=== PATIENT | male | born 1950 | race Caucasian/White ===

== ENCOUNTER 2022-02-04 08:00 | Outpatient (RCR) | payer MEDICARE, BC, SELFPAY | END 2022-03-10 14:57 | disposition home or self-care (01) | PROVIDERS: Visit Provider Student in an Organized Health Care Education/Training Program | DX: M25.552 Pain in left hip (principal); Z51.89 Encounter for other specified aftercare | CPT/HCPCS: 97110; 97140; 97535 ==

== ENCOUNTER 2022-04-06 10:28 | Day surgery (SDC) | payer MEDICARE, BC, SELFPAY ==
[2022-04-06] VITALS (23 sets, daily range): BP systolic 81–161; BP diastolic 52–97; PULSE 63–90; RESP 14–94; TEMP 35.8–36.6; O2SAT 90–98; BMI 31.1
--- NOTE | 2022-04-06 11:13 | CRLHL7_ITS ---
For Patients: As a result of the Cures Act, medical imaging exams and procedure reports are released immediately into your electronic medical record. You may view this report before your referring provider. If you have questions, please contact your health care provider. Indication: Hip replacement surgery Technique: AP hip fluoroscopic image. Fluoroscopy time 43.7 seconds. Findings/Impression: Hardware from a left total hip arthroplasty is in satisfactory position. Dictated by David Vaz MD @ 04/07/2022 9:15:49 AM (Electronically Signed)
[2022-04-06] MEDS: OXYCODONE (CR) 10 MG TAB.ER.12H PO (11:15)
[2022-04-06] MEDS: SODIUM CHLORIDE 0.9 % (FLUSH) 10 ML SYRINGE IVF (11:25)
[2022-04-06] MEDS: LACTATED RINGERS 1000 ML 1,000 ML 100 ML IV (11:25)
[2022-04-06] MEDS: fentaNYL 100 MCG/2 ML inj IVP (11:40)
[2022-04-06] MEDS: MIDAZOLAM HCL 1 MG/ML inj IVP (11:40)
--- NOTE | 2022-04-06 11:49 | SUR.PREOP ---
TIME?OUT:?1135 PT/RN/MDA?VERIFICATION?OF?SURGICAL?SITE,?PROCEDURE,?AND?CONSENT OBTAINED?PRIOR?TO?INVASIVE?PROCEDURE.
--- NOTE | 2022-04-06 11:51 | SUR.PREOP ---
LAB HERE AT 1150 TO DRAW TYPE & SCREEN
--- NOTE | 2022-04-06 11:53 | SUR.PREOP ---
PATIENT TOOK OWN TYLENOL AND CELEBREX AT HOME THIS AM, HELD ORDERED TYLENOL AND CELEBREX.
--- NOTE | 2022-04-06 11:55 | W.PM.NB ---
Nerve Block Nerve Block Date Seen: 04/06/22 Type of block requested by surgeon for post-operative analgesia: ALLA/LFCN Time out performed: Yes Verification of patient name: Yes Verification of date of : Yes Site marking: site marked Name of person performing procedure: Naveen Continuous monitoring Was continuous monitoring of O2 sat, B/P, monitor car operator, recorded every 15 minutes?: Yes Procedure Checklist: sterile prep, needles and gloves Ultrasound guided. Images saved: Yes Medications given in 5ml increments after negative aspiration: Ropivicaine %: 0.5 mL: 30 Needle gauge: 20 Decadron (mg): 10 Precedex (mcg): 25 Patient tolerated procedure well: Yes Additional comments: Needle noted below psoas tendon needle noted adjacent to LFCN Block Charges Block Charge (with Pro Fee): Other Periph Nerve Block Use of Ultrasound Machine for Block: Yes- US Guidance/pain block
--- NOTE | 2022-04-06 12:09 | CRLHL7_ITS ---
For Patients: As a result of the Cures Act, medical imaging exams and procedure reports are released immediately into your electronic medical record. You may view this report before your referring provider. If you have questions, please contact your health care provider. Indication: Post op DAVID Technique: AP pelvis and lateral view left hip Findings/Impression: Hardware from a left total hip arthroplasty is in satisfactory position. Bone alignment is normal. No sign of acute fracture. Postop changes are within normal limits. Dictated by David Vaz MD @ 04/07/2022 9:17:30 AM (Electronically Signed)
--- NOTE | 2022-04-06 13:56 | P.ORPRC_ITS ---
Procedure Note Date of procedure: 04/06/22 Procedure: PREOPERATIVE DIAGNOSIS: 1. Left hip osteoarthritis, severe, primary POSTOPERATIVE DIAGNOSIS: 1. Left hip osteoarthritis, severe, primary PROCEDURE: 1. Left total hip arthroplasty-anterior approach 2. 56751 - intraoperative fluoroscopy up to 1 hour. SURGEON: Montana Head MD. BANKING SERVICES CLERK: Faustino Castaneda PA-C; YESENIA Poe - Of note, a skilled assistant restaurant general manager was critical for this case to aid in patient positioning, tissue retraction, limb manipulation/positioning, dislocation/relocation, patient safety, and closure. ANESTHESIA: Spinal anesthetic EBL: 1000 mL IMPLANTS: DePuy J&J uncemented total hip [place] cup size 50, hole eliminator, +4 neutral liner Actis stem, high offset, size 7 +1 mm ceramic 32mm head. COMPLICATIONS: None evident INDICATIONS: The patient is a pleasant 71-year-old male who has experienced severe left hip pain and difficulty bearing weight. Workup included x-rays which revealed severe osteoarthrosis in the hip. Given the deformity, the dysfunction, and the pain, as well as the failure of nonoperative management, recommendation was made for surgery. FINDINGS: Full-thickness chondral loss broadly to the femoral head especially around the rim of the femoral head. Full-thickness chondral loss acetabulum again perimeter primarily. Significant oozing from the acetabular vault upon reaming and until Surgicel applied after cup and poly insertion. DESCRIPTION OF PROCEDURE: Following a thorough discussion of risks, benefits, and alternatives consent was obtained and the left hip was marked. The patient was brought to the operating room and placed supine on the operating table. Induction of anesthesia was undertaken. 2 g IV Ancef and 1 g tranexamic acid was administered within 1 hr of incision preoperatively. Proper time-out was performed identifying proper patient, site, procedure. The operative extremity was prepped and draped in the appropriate sterile fashion using ChloraPrep after the patient was positioned on the [place] table with head in neutral alignment and all bony prominences well padded. C-arm fluoroscopic imaging was utilized to confirm proper pelvis rotation and position, and to get true AP films of both the contralateral left, and the affected left hip. This is for comparison. A longitudinal incision was made starting approximately 1 cm distal to the ASIS, and 3-4 cm lateral. The incision was extended distally aiming toward the lateral border the patella. Sharp incision through skin and bovie cautery through the subcutaneous tissue allowed identification of the TFL fascia. This was sharply divided, and the fascia bluntly released from the muscle fibers as we dissected medial. Upon coming to the medial border, we were able to retract the TFL laterally, and penetrated the deeper fascia and identify the crossing ci rcumflex vessels. These were ligated/cauterized. The rectus was elevated from the capsule, and retractors placed laterally and medially along the femoral neck to help with visualization of the capsule. We then performed an inverted T capsulotomy. The capsule was tagged for later repair. Retractors were placed inside the capsule. The femoral neck was visualized after releasing medially down to the lesser trochanter, along the saddle laterally, and up onto the acetabulum. The femoral neck cut was made in line with our preoperative templating. The head was removed in a single piece, and sized. We turned our attention to acetabular preparation. Initially, the labrum was resected from around the perimeter, the pulvinar was excised, allowing us to visualize the false wall. We started the reaming with a 43 mm reamer. This was medialized down to the true wall. We then enlarged our reamers sequentially up to one size less than the selected cup size. We trialed at the same size and f ound it to have an excellent fit. The selected cup was then opened, inserted, and impacted in line with the goal of 40-45? of abduction, and 20-25? of anteversion. This was confirmed on C-arm fluoroscopic imaging to be in the appropriate/goal position. Once the cup was placed we placed a hole eliminator and a liner consistent with preop planning. Attention was turned to the femoral preparation. The limb was extended, externally rotated, and adducted. The posteromedial capsule was released, as retractors were placed allowing excellent access to the proximal femur. Initially a box sealing machine feeder was followed by canal finder followed by various broaches. We broached sequentially up to size noted above, found it to have excellent rotational control, and trialing various heads and necks, revealed that appropriate neck offset, and the above noted head size provided the greatest stability, and restorationism of length, and offset. C-arm fluoroscopic imaging confirmed position of the stem, as well as leg lengths, which were compared with the pre procedure all fluoroscopic images. Trial implants were removed, the real femoral stem inserted, as was the ceramic head. After reducing, the leg was placed through range of motion and stability was confirmed anterior, posterior, and lateral. A 3 min Betadine soak was then performed, and thorough irrigation with normal saline followed. Closure of the capsule was performed with #1 PDS. Bleeding was confirmed to be controlled at this stage, and the TFL fascia was closed with #0 strata fix. Subcutaneous, and subcuticular closure was performed with 2-0 Vicryl and 4-0 Monocryl, respectively. Dressings were applied, and the patient was awoken from anesthesia and transferred the PACU in stable condition. A skilled assistant restaurant general manager was critical for this case to aid in patient positioning, tissue retraction, proximal femur exposure, limb manipulation/positioning, dislocation/relocation, patient safety, and closure. PLAN: 1. Weight bear as tolerated operative extremity. 2. 23 hr perioperative antibiotics. 3. Ice. 4. PT/OT consults for ambulation assistance/mobility education. 5. Social work consult for discharge planning. 6. DVT prophylaxis with at SCDs, Jarad Gutierrez, and Luisreldhiraj x5 days followed by aspirin for a total of 1 month..
--- NOTE | 2022-04-06 14:48 | W.ANESCHARGE ---
Anesthesia Charges Start Date/Time Anesthesia Start Date: 04/06/22 Anesthesia Start Time: 12:00 Stop Date/Time Anesthesia Stop Date: 04/06/22 Anesthesia Stop Time: 14:45 Summary Emergency: No Extremes of Age: Over 68-CPT 60328
--- NOTE | 2022-04-06 14:53 | W.ANESCHARGE ---
Anesthesia Charges Start Date/Time Anesthesia Start Date: 04/06/22 Anesthesia Start Time: 12:00 Stop Date/Time Anesthesia Stop Date: 04/06/22 Anesthesia Stop Time: 14:45 Summary Emergency: No
--- NOTE | 2022-04-06 15:59 | P.IMCN_ITS ---
Date of Consult Patient: Momo Patient Consult date: 04/06/22 Requesting Physician: Orthopedics Primary Care Provider: FRED THOMPSON DO Consult Narrative Reason for consult: Medical management of comorbidities Narrative: Abmrosio Abel is a 71 year old male who presented to the hospital today for an elective left DAVID. There were no surgical or anesthetic complications noted during procedure, although EBL was on the higher side of 1000 mL. Patient was hypotensive immediately postoperatively, blood pressure has come up nicely upon arrival to the floor. Patient's H&P reviewed, PCP is Dr. Thompson. Past medical history significant for: NICK (on CPAP, brought this to the hospital), Essential HTN, OA. No history of blood clots, has never needed a blood transfusion. Postoperative plan: Home with . 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 Nonsmoker, no concerning ETOH use. Review of Systems Status of ROS: Reports: 10 or more systems reviewed and unremarkable except as noted in History and below [facility] Medical History (Updated 04/03/22 @ 10:40 by Amanda Cage RN) Asthma Fracture of femoral neck, right GERD (gastroesophageal reflux disease) Hypertension Migraine Osteoarthritis of left hip Sleep apnea Surgical History (Updated 04/06/22 @ 16:02 by Carey Cardona MD) History of arthroscopy of right knee (~1994) History of foot surgery (08/05/20) History of surgery on lower extremity (07/13/18) Status post left hip replacement Family History (Updated 03/31/22 @ 09:34 by Abbey White RN) Maternal Grandmother Diabetes Brother Skin cancer Social History Highest level of school completed/degree received: Doctoral degree Smoking Status: Never smoker Do you use any of these nicotine containing products: None How often do you have a drink containing alcohol: never AUDIT-C Alcohol total score: 0 Non-prescribed substance use: denies use Caffeine: Yes (coffee, 3 mugs/day) Meds Home Medications and Allergies Home Medications Medication Instructions Recorded Confirmed Type tramadol 50 mg tablet 50 mg PO QID PRN 02/10/22 04/06/22 History albuterol sulfate 90 mcg/actuation 2 inh inhalation Q4H PRN 04/03/22 04/06/22 History aerosol inhaler (Ventolin HFA) celecoxib 200 mg capsule (Celebrex) 200 mg PO BID 04/03/22 04/06/22 History fluticasone propionate 50 1 spray intranasal DAILY PRN 04/03/22 04/06/22 History mcg/actuation nasal spray,suspension (24 Hour Allergy Relief) lisinopril 20 mg tablet 20 mg PO DAILY 04/03/22 04/06/22 History mometasone 0.1 % topical ointment 1 applic topical DAILY 04/03/22 04/06/22 History sildenafil 100 mg tablet (Viagra) 100 mg PO DAILY PRN 04/03/22 04/06/22 History acetaminophen 500 mg tablet 1,000 mg PO Q6H PRN 04/06/22 04/06/22 History (Acetaminophen Extra Strength) Allergies Allergy/AdvReac Type Severity Reaction Status Date / Time No Known Drug Allergies Allergy Verified 04/06/22 10:42 Exam Narrative: Exam Narrative: GEN: Alert and oriented, answering questions appropriately HEENT: Normal external ears, EOMIs bilaterally, no scleral icterus CV: RRR, No concerning murmurs, rubs, or gallops R: LCTA bilaterally without concerning wheezing, rales, or rhonchi Ext: wwp, no concerning edema Skin: No concerning skin lesions or rashes on exposed skin Neuro: Nonfocal Psych: Appropriate Const: Vital Signs, click to edit/add: Vital Signs - 24 hr 04/06/22 11:11 04/06/22 11:35 04/06/22 11:40 Temperature 97.9 F Pulse Rate 75 70 71 Pulse Rate [Left P ulse Oximeter] Respiratory Rate 16 16 16 Blood Pressure 161/97 H 159/90 H 138/86 Blood Pressure [Le ft Arm] Pulse Oximetry 96 97 98 Oxygen Delivery Me thod Room Air Nasal Cannula Nasal Cannula Oxygen Flow Rate 2 2 04/06/22 11:45 04/06/22 14:41 04/06/22 14:46 Temperature 97.5 F L Pulse Rate 70 86 82 Pulse Rate [Left P ulse Oximeter] Respiratory Rate 16 16 16 Blood Pressure 133/76 82/53 L 81/53 L Blood Pressure [Le ft Arm] Pulse Oximetry 98 96 96 Oxygen Delivery Me thod Nasal Cannula Room Air Room Air Oxygen Flow Rate 2 04/06/22 14:55 04/06/22 14:50 04/06/22 15:00 Temperature Pulse Rate 78 76 68 Pulse Rate [Left P ulse Oximeter] Respiratory Rate 16 16 14 Blood Pressure 90/55 L 88/52 L 92/55 L Blood Pressure [Le ft Arm] Pulse Oximetry 98 98 98 Oxygen Delivery Me thod Room Air Room Air Room Air Oxygen Flow Rate 04/06/22 15:05 04/06/22 15:10 04/06/22 15:41 Temperature 97.2 F L Pulse Rate 66 72 67 Pulse Rate [Left P ulse Oximeter] Respiratory Rate 16 16 94 H Blood Pressure 92/58 L 89/56 L Blood Pressure [Le ft Arm] 104/63 Pulse Oximetry 96 96 Oxygen Delivery Me thod Room Air Room Air Room Air Oxygen Flow Rate 04/06/22 15:30 04/06/22 15:45 Temperature 96.5 F L 96.9 F L Pulse Rate Pulse Rate [Left P ulse Oximeter] 82 82 Respiratory Rate 14 14 Blood Pressure Blood Pressure [Le ft Arm] 117/53 L 110/67 Pulse Oximetry 90 98 Oxygen Delivery Me thod Room Air Room Air Oxygen Flow Rate 2 Assessment and Plan Assessment and plan (1) Status post left hip replacement: Status: Acute Assessment and Plan: - pain management and prophylaxis per orthopedic surgery team - postoperative hemoglobin is 12.5, will follow - Continue CPAP at night for treatment of NICK - will hold lisinopril given postoperative hypotension - anticipate routine postoperative course
[2022-04-06 16:50] LABS: Hematocrit 36.8 % (37.0-53.0); Hemoglobin* 12.5 gm/dL (13.5-17.5); Immature Granulocytes Abs Auto 0.07 K/uL (0.00-0.30); Lymphocytes Percent Auto 4.5 % (20-44); Mean Corpuscular HGB Conc 34 gm/dL (32-36); Mean Corpuscular Hemoglobin 33 pg (26-34); Mean Corpuscular Volume 96 fL (80-100); Monocytes Percent Auto 1.3 % (0.0-11.0); Neutrophils Percent Auto 93.6 % (42.0-72.0); Platelet Count* 186 K/uL (140-440); RDW Coefficient of Variation % 12.7 % (11.5-15.5); Red Blood Count 3.84 m/uL (4.30-5.90); White Blood Count* 12.07 K/uL (4.50-11.00)
[2022-04-06 17:01] LABS: Slide Review Reflex No
[2022-04-06] MEDS: OXYCODONE 5 MG TABLET PO ×3 (17:25→21:52)
[2022-04-06] MEDS: ACETAMINOPHEN 500 MG TABLET 1000 MG PO (18:04)
--- NOTE | 2022-04-06 18:47 | PC.NURSE ---
End of Shift: Patient pleasant and cooperative. Patient vitally stable, lungs clear, BS WNL, IV running LR at 75ml. Patient has rated pain at most 6/10, scheduled tylenol given and 5mg of oxycodone. Patient tolerating regular diet. Patient up in chair, 1 assist, walker, gb. Patient left hip dressing C/D/I. Patient has not urinated with this telegraphic typewriter operator.
[2022-04-06] MEDS: CEFAZOLIN 2 GM in 0.9 % SODIUM CHLORIDE Mini-bag 100 ML IVPB (19:27)
[2022-04-06] MEDS: CELECOXIB 200 MG CAPSULE PO (21:43)
[2022-04-06] MEDS: SENNOSIDES 1 TAB TABLET 2 TAB PO (21:43)
[2022-04-06] MEDS: hydrOXYzine pamoate 25 MG CAPSULE PO (21:52)
[2022-04-06] MEDS: LACTATED RINGERS 1000 ML 1,000 ML 75 ML IV (21:53)
[2022-04-07] MEDS: ACETAMINOPHEN 500 MG TABLET 1000 MG PO ×2 (01:15→06:12)
[2022-04-07 03:00] VITALS: BP 114/68; PULSE 79; RESP 18; TEMP 36.6; O2SAT 94
[2022-04-07] MEDS: CEFAZOLIN 2 GM in 0.9 % SODIUM CHLORIDE Mini-bag 100 ML IVPB (03:14)
[2022-04-07 06:54] LABS: Basophils Percent Auto 0.1 % (0.0-3.0); Hematocrit 33.9 % (37.0-53.0); Hemoglobin* 11.5 gm/dL (13.5-17.5); Immature Granulocytes Abs Auto 0.02 K/uL (0.00-0.30); Lymphocytes Percent Auto 6.4 % (20-44); Mean Corpuscular HGB Conc 34 gm/dL (32-36); Mean Corpuscular Hemoglobin 33 pg (26-34); Mean Corpuscular Volume 96 fL (80-100); Monocytes Percent Auto 8.2 % (0.0-11.0); Neutrophils Percent Auto 85.1 % (42.0-72.0); Platelet Count* 204 K/uL (140-440); RDW Coefficient of Variation % 12.9 % (11.5-15.5); Red Blood Count 3.54 m/uL (4.30-5.90); White Blood Count* 12.52 K/uL (4.50-11.00)
[2022-04-07 06:56] LABS: Slide Review Reflex No
--- NOTE | 2022-04-07 06:56 | PC.NURSE ---
Shift note: Pt is doing well, pain level rated at 2. Dressing appears clean and dry. Pt has had about 350ml of clear urine this shift so saline locked. Resumed regular diet. Assist of 1 with walker and GB.
[2022-04-07 07:00] VITALS: BP 129/76; PULSE 78; RESP 16; TEMP 37.2; O2SAT 96
[2022-04-07 07:14] LABS: Sodium* 137 mmol/L (135-149)
[2022-04-07 07:15] LABS: Potassium* 4.9 mmol/L (3.6-5.1)
[2022-04-07 07:17] LABS: Creatinine* 0.8 mg/dL (0.5-1.5); Est. Creatinine Clearance* 63.65; Estimated Glomerular Filt Rate 93 ml/min
[2022-04-07 07:18] LABS: Blood Urea Nitrogen* 22 mg/dL (7-30)
--- NOTE | 2022-04-07 07:54 | P.ORPN_ITS ---
Subjective Subjective Date Seen: 04/07/22 Principal diagnosis: Status postop day 1 left total hip arthroplasty - anterior approach Interval history: Patient reports doing well. No acute events over night. Pain managed with scheduled /PRN medications and ice. DVT prophylaxis rivaroxaban, bilateral knee high Jarad stockings, and SCDs. Denies fevers, chills, aches, N/V, CP, SOB/DUMONT, tachycardia, tachypnea or lightheadedness. Reports having inconsistent urine vo id, with slight pressure in his bladder. Reports that he is typically very regular with bowel and bladder. Ortho Exam Narrative Exam Narrative: -Patient appears comfortable in bed; no apparent acute distress. CPAP in place -Alert and oriented times 3 -Operative hip mildly swollen; soft tissues supple; no obvious erythema. Warmth appropriate. There is some erythema over the ice pack contact region -Surgical dressing clean, dry, intact; no obvious drainage, no erythematous streaking peripheral to the bandage -Bilateral calves soft and supple; no significant swelling, edema, tenderness, erythema, discoloration, warmth, or palpable cords -2+ DP/PT pulses, intact dermatomes and myotomes distally (5/5 strength). No numbness about the lateral femoral cutaneous nerve distribution. -pressure, mildly tender over the bladder with palpation Const Vital Signs, click to edit/add: Vital Signs - 24 hr 04/06/22 11:11 04/06/22 11:35 04/06/22 11:40 Temperature 97.9 F Pulse Rate 75 70 71 Pulse Rate [Left Pulse Oximeter] Respiratory Rate 16 16 16 Blood Pressure 161/97 H 159/90 H 138/86 Blood Pressure [Left Arm] Blood Pressure [Right Arm] Pulse Oximetry 96 97 98 Oxygen Delivery Method Room Air Nasal Cannula Nasal Cannula Oxygen Flow Rate 2 2 04/06/22 11:45 04/06/22 14:41 04/06/22 14:46 Temperature 97.5 F L Pulse Rate 70 86 82 Pulse Rate [Left Pulse Oximeter] Respiratory Rate 16 16 16 Blood Pressure 133/76 82/53 L 81/53 L Blood Pressure [Left Arm] Blood Pressure [Right Arm] Pulse Oximetry 98 96 96 Oxygen Delivery Method Nasal Cannula Room Air Room Air Oxygen Flow Rate 2 04/06/22 14:55 04/06/22 14:50 04/06/22 15:00 Temperature Pulse Rate 78 76 68 Pulse Rate [Left Pulse Oximeter] Respiratory Rate 16 16 14 Blood Pressure 90/55 L 88/52 L 92/55 L Blood Pressure [Left Arm] Blood Pressure [Right Arm] Pulse Oximetry 98 98 98 Oxygen Delivery Method Room Air Room Air Room Air Oxygen Flow Rate 04/06/22 15:05 04/06/22 15:10 04/06/22 15:41 Temperature 97.2 F L Pulse Rate 66 72 67 Pulse Rate [Left Pulse Oximeter] Respiratory Rate 16 16 94 H Blood Pressure 92/58 L 89/56 L Blood Pressure [Left Arm] 104/63 Blood Pressure [Right Arm] Pulse Oximetry 96 96 Oxygen Delivery Method Room Air Room Air Room Air Oxygen Flow Rate 04/06/22 15:30 04/06/22 15:45 04/06/22 16:00 Temperature 96.5 F L 96.9 F L 97.3 F L Pulse Rate Pulse Rate [Left Pulse Oximeter] 82 82 64 Respiratory Rate 14 14 14 Blood Pressure Blood Pressure [Left Arm] 117/53 L 110/67 105/76 Blood Pressure [Right Arm] Pulse Oximetry 90 98 98 Oxygen Delivery Method Room Air Room Air Room Air Oxygen Flow Rate 2 04/06/22 16:15 04/06/22 16:45 04/06/22 17:15 Temperature 97.1 F L 97.1 F L 97.1 F L Pulse Rate Pulse Rate [Left Pulse Oximeter] 63 63 64 Respiratory Rate 14 14 14 Blood Pressure Blood Pressure [Left Arm] 109/81 121/74 120/73 Blood Pressure [Right Arm] Pulse Oximetry 96 97 98 Oxygen Delivery Method Room Air Room Air Room Air Oxygen Flow Rate 04/06/22 18:15 04/06/22 19:15 04/06/22 20:15 Temperature 97.3 F L 97.7 F 97.7 F Pulse Rate Pulse Rate [Left Pulse Oximeter] 82 90 88 Respiratory Rate 14 18 16 Blood Pressure Blood Pressure [Left Arm] Blood Pressure [Right Arm] 119/81 119/83 120/66 Pulse Oximetry 98 98 97 Oxygen Delivery Method Room Air Room Air Room Air Oxygen Flow Rate 04/06/22 21:15 04/06/22 23:00 04/06/22 23:00 Temperature 97.7 F 97.7 F Pulse Rate Pulse Rate [Left Pulse Oximeter] 81 85 Respiratory Rate 16 18 18 Blood Pressure Blood Pressure [Left Arm] 110/68 Blood Pressure [Right Arm] 116/67 Pulse Oximetry 98 94 Oxygen Delivery Method Room Air Room Air Oxygen Flow Rate 2 04/07/22 03:00 Temperature 97.9 F Pulse Rate Pulse Rate [Left Pulse Oximeter] 79 Respiratory Rate 18 Blood Pressure Blood Pressure [Left Arm] 114/68 Blood Pressure [Right Arm] Pulse Oximetry 94 Oxygen Delivery Method Room Air Oxygen Flow Rate 2 Assessment and Plan Assessment and plan (1) Status post left hip replacement: Problem details: POD 1 left total hip arthroplasty - anterior approach Status: Acute (2) Acute postoperative anemia due to greater than expected blood loss: Problem details: Hemoglobin 11.5, down from 12.5 04/06/22; greater than 14 preoperative. He is asymptomatic (pt denies CP, SOB/DUMONT, tachycardia, tachypnea, lightheadedness or dizziness). Status: Acute Plan - Complete 23 hour perioperative antibiotics. - PT/OT consult for education and assistance. - Social work consult for discharge planning - Prescribed analgesics as needed - DVT prophylaxis: Rivaroxaban 5 total days 25 days 81 mg aspirin by mouth twice daily; bilateral knee high Jarad Hose stockings and SCDs - Anticipation is for discharge to home 04/07/2022 if the patient remains medically stable, pain is controlled, and they are safe with mobilization.
--- NOTE | 2022-04-07 08:00 | PM.DS1 ---
DS: Providers Provider Date Seen: 04/07/22 Date of admission: med/surg recovery 04/06/22 Primary care physician: FRED FAY DO Consults: 04/06/22 15:33 Consult to Occupational Therapy [CONS] Routine Comment: Reason(s) for OT Consult:: ADLs Prior to Discharge Any Restrictions?:: No Restrictions Comment: Consult to Physical Therapy [CONS] Routine Comment: Ambulate in the ansari today Reason(s) for PT Consult:: Evaluate and Treat Any Restrictions?:: No Restrictions Comment: Nursing Activity Consult to Physician [CONS] Routine Comment: Consulting Provider: Hospitalists Has provider been notified: No Consult to Special Projects Coordinator [CONS] Routine Comment: Reason for Consult:: Discharge Planning Needs Attending Physician on discharge: Montana Head MD Date of Discharge: 04/07/22 DS: Diagnosis Discharge Diagnosis (1) Osteoarthritis of left hip: Status: Acute Problem details: Severe (2) Status post left hip replacement: Status: Acute Problem details: POD 1 left total hip arthroplasty - anterior approach DS: Summary Status at Discharge Cognitive/behavioral status at discharge: The patient has a history of left hip osteoarthritis, primary, severe. After appropriate preoperative evaluation, the patient underwent left total hip arthroplasty. Postoperatively given anticoagulation for deep vein thrombosis prophylaxis. They progressed to PT/OT and were felt ready and prepared for discharge to home with appropriate pain medication and anticoagulation medications. He had greater than expected blood loss during surgery, that was treated appropriately. During wound closure, the field was dry; there were no concerns for active bleeding. Postoperative, while patient's hemoglobin reflected blood loss anemia, he was asymptomatic. Functional status at discharge: uses cane/walker Overall status at discharge: patient is progressing back to baseline Time Spent with Patient Time attestation: Total time spent providing and/or coordinating discharge services: Time spent: Less than 30 minutes Exam Const: Vital Signs, click to edit/add: Vital Signs - 24 hr 04/06/22 11:11 04/06/22 11:35 04/06/22 11:40 Temperature 97.9 F Pulse Rate 75 70 71 Pulse Rate [Left P ulse Oximeter] Respiratory Rate 16 16 16 Blood Pressure 161/97 H 159/90 H 138/86 Blood Pressure [Le ft Arm] Blood Pressure [Ri ght Arm] Pulse Oximetry 96 97 98 Oxygen Delivery Me thod Room Air Nasal Cannula Nasal Cannula Oxygen Flow Rate 2 2 10/31/22 11:45 04/06/22 14:41 04/06/22 14:46 Temperature 97.5 F L Pulse Rate 70 86 82 Pulse Rate [Left P ulse Oximeter] Respiratory Rate 16 16 16 Blood Pressure 133/76 82/53 L 81/53 L Blood Pressure [Le ft Arm] Blood Pressure [Ri ght Arm] Pulse Oximetry 98 96 96 Oxygen Delivery Me thod Nasal Cannula Room Air Room Air Oxygen Flow Rate 2 04/06/22 14:55 04/06/22 14:50 04/06/22 15:00 Temperature Pulse Rate 78 76 68 Pulse Rate [Left P ulse Oximeter] Respiratory Rate 16 16 14 Blood Pressure 90/55 L 88/52 L 92/55 L Blood Pressure [Le ft Arm] Blood Pressure [Ri ght Arm] Pulse Oximetry 98 98 98 Oxygen Delivery Me thod Room Air Room Air Room Air Oxygen Flow Rate 04/06/22 15:05 04/06/22 15:10 04/06/22 15:41 Temperature 97.2 F L Pulse Rate 66 72 67 Pulse Rate [Left P ulse Oximeter] Respiratory Rate 16 16 94 H Blood Pressure 92/58 L 89/56 L Blood Pressure [Le ft Arm] 104/63 Blood Pressure [Ri ght Arm] Pulse Oximetry 96 96 Oxygen Delivery Me thod Room Air Room Air Room Air Oxygen Flow Rate 04/06/22 15:30 04/06/22 15:45 04/06/22 16:00 Temperature 96.5 F L 96.9 F L 97.3 F L Pulse Rate Pulse Rate [Left P ulse Oximeter] 82 82 64 Respiratory Rate 14 14 14 Blood Pressure Blood Pressure [Le ft Arm] 117/53 L 110/67 105/76 Blood Pressure [Ri ght Arm] Pulse Oximetry 90 98 98 Oxygen Delivery Me thod Room Air Room Air Room Air Oxygen Flow Rate 2 04/06/22 16:15 04/06/22 16:45 04/06/22 17:15 Temperature 97.1 F L 97.1 F L 97.1 F L Pulse Rate Pulse Rate [Left P ulse Oximeter] 63 63 64 Respiratory Rate 14 14 14 Blood Pressure Blood Pressure [Le ft Arm] 109/81 121/74 120/73 Blood Pressure [Ri ght Arm] Pulse Oximetry 96 97 98 Oxygen Delivery Me thod Room Air Room Air Room Air Oxygen Flow Rate 04/06/22 18:15 04/06/22 19:15 04/06/22 20:15 Temperature 97.3 F L 97.7 F 97.7 F Pulse Rate Pulse Rate [Left P ulse Oximeter] 82 90 88 Respiratory Rate 14 18 16 Blood Pressure Blood Pressure [Le ft Arm] Blood Pressure [Ri ght Arm] 119/81 119/83 120/66 Pulse Oximetry 98 98 97 Oxygen Delivery Me thod Room Air Room Air Room Air Oxygen Flow Rate 04/06/22 21:15 04/06/22 23:00 04/06/22 23:00 Temperature 97.7 F 97.7 F Pulse Rate Pulse Rate [Left P ulse Oximeter] 81 85 Respiratory Rate 16 18 18 Blood Pressure Blood Pressure [Le ft Arm] 110/68 Blood Pressure [Ri ght Arm] 116/67 Pulse Oximetry 98 94 Oxygen Delivery Me thod Room Air Room Air Oxygen Flow Rate 2 04/07/22 03:00 Temperature 97.9 F Pulse Rate Pulse Rate [Left P ulse Oximeter] 79 Respiratory Rate 18 Blood Pressure Blood Pressure [Le ft Arm] 114/68 Blood Pressure [Ri ght Arm] Pulse Oximetry 94 Oxygen Delivery Me thod Room Air Oxygen Flow Rate 2 DS: Data Data Completed and Pending Labs on day of discharge: Labs from last 24 hours 04/07/22 04/07/22 04/06/22 06:34 06:34 16:36 WBC 12.52 H 12.07 H RBC 3.54 L 3.84 L Hgb 11.5 L 12.5 L Hct 33.9 L 36.8 L MCV 96 96 MCH 33 33 MCHC 34 34 RDW Coeff of Fletcher 12.9 12.7 Plt Count 204 186 Neut % (Auto) 85.1 H 93.6 H Lymph % (Auto) 6.4 L 4.5 L [place] % (Auto) 8.2 1.3 Eos % (Auto) 0.0 0.0 Baso % (Auto) 0.1 0.0 Neut # (Auto) 10.70 H 11.30 H Lymph # (Auto) 0.80 L 0.50 L [place] # (Auto) 1.00 H 0.20 Eos # (Auto) 0.00 0.00 Baso # (Auto) 0.00 0.00 Abs Immat Gran (auto) 0.02 0.07 Sodium 137 Potassium 4.9 BUN 22 Creatinine 0.8 Estimated Creat Clear 63.65 Estimated GFR 93 Blood Type Antibody Screen 04/06/22 11:55 WBC RBC Hgb Hct MCV MCH MCHC RDW Coeff of Fletcher Plt Count Neut % (Auto) Lymph % (Auto) [place] % (Auto) Eos % (Auto) Baso % (Auto) Neut # (Auto) Lymph # (Auto) [place] # (Auto) Eos # (Auto) Baso # (Auto) Abs Immat Gran (auto) Sodium Potassium BUN Creatinine Estimated Creat Clear Estimated GFR Blood Type B Positive Antibody Screen NEGATIVE Discharge Plan Discharge Disposition: Home, Self-Care Discharging Surgeon: Montana Head Follow-Up Appointment: 1 week PO visit with [facility] Prescriptions: New sennosides-docusate sodium [Senna-S] 8.6-50 mg tablet 1 - 4 tab-cap PO BID PRN (Reason: constipation) Qty: 60 0RF Rx Instructions: Hold medication if experiencing loose stools. aspirin 81 mg tablet,delayed release (DR/EC) 81 mg PO BID Qty: 50 0RF Rx Instructions: Medication to help prevent blood clots postoperatively; take TWICE daily. acetaminophen 500 mg capsule 500 - 1,000 mg PO Q6H MDD 4000mg PRNQty: 100 0RF oxycodone 5 mg tablet 2.5 - 5 mg PO Q4-6H MDD 6 PRN (Reason: pain) Qty: 42 0RF Rx Instructions: Take as needed for postop pain: 2.5mg mild pain, 5mg moderate-severe pain; wean as tolerated. rivaroxaban 10 mg tablet 10 mg PO DAILY Qty: 4 0RF Rx Instructions: Medication for deep vein clot prevention post surgery. Complete this medication before starting Aspirin. Discontinued tramadol 50 mg tablet 50 mg PO QID PRN No Action albuterol sulfate [Ventolin HFA] 90 mcg/actuation HFA aerosol inhaler 2 inh inhalation Q4H PRN celecoxib [Celebrex] 200 mg capsule 200 mg PO BID fluticasone propionate [24 Hour Allergy Relief] 50 mcg/actuation spray,suspension 1 spray intranasal DAILY PRN Rx Instructions: administer into each nostril lisinopril 20 mg tablet 20 mg PO DAILY mometasone 0.1 % ointment 1 applic topical DAILY sildenafil [Viagra] 100 mg tablet 100 mg PO DAILY PRN Rx Instructions: administer 30 minutes to 4 hours before activity acetaminophen [Acetaminophen Extra Strength] 500 mg tablet 1,000 mg PO Q6H PRN Activity Level: Activity as Tolerated, Weight Bearing as Tolerated, Use Cane and Use Walker Discharge Diet: Regular Patient Instructions: Surgical Site Infections (DC) Additional Instructions: Wound: ?Do not remove original dressing; we will remove this at first postop visit in 1 week. Only remove dressing if integrity is in question. ?No immersing wound in water; showering okay; light scrub with your hand and body soap, rinse, dab dry ?Sutures are under the skin, will dissolve; allow surgical glue to come off naturally; do not scrub the wound or apply ointments/lotions ?Call our office with any redness that streaks, excessive drainage from the wound, or wound gapping. Ice/Elevate: ?Ice as needed for swelling and discomfort (cryocuff or ice pack); elevate frequently above the heart JOSEFINA socks: ?Wear for 1 month, remove for 1 hour 3 times per day ?These are frustrating to take on/off, but are important for blood clot prevention for 1 month after surgery Blood Clot Prevention (DVT): ?Medication: Rivaroxaban, and transition to 81 mg aspirin by mouth twice daily (total one month of protection). Driving: ?Do not drive while taking narcotic pain medication ?Anticipate 4-6 weeks no driving if operative leg is driving leg Dental: ?No elective dental work for 6 months post-op. If there is an urgent/emergent dental need, contact our office for an antibiotic prescription. Smoking/Alcohol: ?Do not smoke; do no drink alcohol especially when taking postoperative oral narcotic medication Seek Care from you Primary Care Provider if you experience the following issues in the postoperative phase and beyond: ?Bacterial infections such as: pneumonia, bacterial skin infection (cellulitis), UTI, high fever, chills unrelated to the operative body part - call your primary care physician urgently for treatment in hopes to protect your health and the metal implant. Referrals: ?PT, OT per patient preference - evaluate treat total hip arthroplasty protocol (gait training, ROM, ADLs) Follow up: ?Ortho surgeon follow-up in 6 weeks; repeat radiographs AP pelvis, cross-table lateral operative hip ?PA-C visit in 1 week *If there are any acute concerns regarding your surgery, please call our orthopedic clinic ([phone]) Forms: Work/Release Restrictions Follow-up: FRED FAY DO [Primary Care Provider] - Discharge Orders: Discharge Order (Routine); Ordered 04/07/22 Ordered By: Faustino Castaneda
[2022-04-07] MEDS: OXYCODONE 5 MG TABLET PO ×2 (08:01→10:41)
[2022-04-07] MEDS: CELECOXIB 200 MG CAPSULE PO (09:10)
[2022-04-07] MEDS: SENNOSIDES 1 TAB TABLET 2 TAB PO (09:11)
[2022-04-07] MEDS: RIVAROXABAN 10 MG TABLET PO (09:11)
--- NOTE | 2022-04-07 09:51 | P.DS_ITS ---
DS: Providers Provider Date Seen: 04/07/22 Primary care physician: FRED FAY DO Consults: PT, OT, SW, and hospitalist Attending Physician on discharge: [place] Head MD Date of Discharge: 04/07/22 DS: Diagnosis Discharge Diagnosis (1) Status post left hip replacement: Status: Acute Problem details: POD 1 left total hip arthroplasty - anterior approach DS: Summary Hospital Course Hospital Course: Jessicaes a 71-year-old male who presented to the hospital for elective left total hip with orthopedic surgery. He had a notable EBL of 1000 mL, hemoglobin was 12.5 postoperatively, 11.5 on postoperative day 1. Patient had no concerning symptoms of lightheadedness or dizziness, and there was no concern for persistent bleeding postoperatively. Comorbidities remained stable throughout stay. No changes made to home medications upon discharge. Prophylaxis and pain management per Orthopedic surgery team. Patient will be discharged home with routine follow-up with therapies, orthopedic surgery, and PCP. Time Spent with Patient Time attestation: Total time spent providing and/or coordinating discharge services: Exam Narrative: Exam Narrative: GEN: Alert and oriented, sitting comfortably in bedside chair and speaking in full sentences HEENT: Normal external ears, EOMIs bilaterally Ext: wwp, no concerning edema Skin: No concerning skin lesions or rashes on exposed skin Neuro: Nonfocal, no resting tremor, gait appropriate per postop status with therapy team Psych: Appropriate Const: Vital Signs, click to edit/add: Vital Signs - 24 hr 04/06/22 11:11 04/06/22 11:35 04/06/22 11:40 Temperature 97.9 F Pulse Rate 75 70 71 Pulse Rate [Left P ulse Oximeter] Respiratory Rate 16 16 16 Blood Pressure 161/97 H 159/90 H 138/86 Blood Pressure [Le ft Arm] Blood Pressure [Ri ght Arm] Pulse Oximetry 96 97 98 Oxygen Delivery Me thod Room Air Nasal Cannula Nasal Cannula Oxygen Flow Rate 2 2 04/06/22 11:45 04/06/22 14:41 04/06/22 14:46 Temperature 97.5 F L Pulse Rate 70 86 82 Pulse Rate [Left P ulse Oximeter] Respiratory Rate 16 16 16 Blood Pressure 133/76 82/53 L 81/53 L Blood Pressure [Le ft Arm] Blood Pressure [Ri ght Arm] Pulse Oximetry 98 96 96 Oxygen Delivery Me thod Nasal Cannula Room Air Room Air Oxygen Flow Rate 2 04/06/22 14:55 04/06/22 14:50 04/06/22 15:00 Temperature Pulse Rate 78 76 68 Pulse Rate [Left P ulse Oximeter] Respiratory Rate 16 16 14 Blood Pressure 90/55 L 88/52 L 92/55 L Blood Pressure [Le ft Arm] Blood Pressure [Ri ght Arm] Pulse Oximetry 98 98 98 Oxygen Delivery Me thod Room Air Room Air Room Air Oxygen Flow Rate 04/06/22 15:05 04/06/22 15:10 04/06/22 15:41 Temperature 97.2 F L Pulse Rate 66 72 67 Pulse Rate [Left P ulse Oximeter] Respiratory Rate 16 16 94 H Blood Pressure 92/58 L 89/56 L Blood Pressure [Le ft Arm] 104/63 Blood Pressure [Ri ght Arm] Pulse Oximetry 96 96 Oxygen Delivery Me thod Room Air Room Air Room Air Oxygen Flow Rate 04/06/22 15:30 04/06/22 15:45 04/06/22 16:00 Temperature 96.5 F L 96.9 F L 97.3 F L Pulse Rate Pulse Rate [Left P ulse Oximeter] 82 82 64 Respiratory Rate 14 14 14 Blood Pressure Blood Pressure [Le ft Arm] 117/53 L 110/67 105/76 Blood Pressure [Ri ght Arm] Pulse Oximetry 90 98 98 Oxygen Delivery Me thod Room Air Room Air Room Air Oxygen Flow Rate 2 04/06/22 16:15 04/06/22 16:45 04/06/22 17:15 Temperature 97.1 F L 97.1 F L 97.1 F L Pulse Rate Pulse Rate [Left P ulse Oximeter] 63 63 64 Respiratory Rate 14 14 14 Blood Pressure Blood Pressure [Le ft Arm] 109/81 121/74 120/73 Blood Pressure [Ri ght Arm] Pulse Oximetry 96 97 98 Oxygen Delivery Me thod Room Air Room Air Room Air Oxygen Flow Rate 04/06/22 18:15 04/06/22 19:15 04/06/22 20:15 Temperature 97.3 F L 97.7 F 97.7 F Pulse Rate Pulse Rate [Left P ulse Oximeter] 82 90 88 Respiratory Rate 14 18 16 Blood Pressure Blood Pressure [Le ft Arm] Blood Pressure [Ri ght Arm] 119/81 119/83 120/66 Pulse Oximetry 98 98 97 Oxygen Delivery Me thod Room Air Room Air Room Air Oxygen Flow Rate 04/06/22 21:15 04/06/22 23:00 04/06/22 23:00 Temperature 97.7 F 97.7 F Pulse Rate Pulse Rate [Left P ulse Oximeter] 81 85 Respiratory Rate 16 18 18 Blood Pressure Blood Pressure [Le ft Arm] 110/68 Blood Pressure [Ri ght Arm] 116/67 Pulse Oximetry 98 94 Oxygen Delivery Me thod Room Air Room Air Oxygen Flow Rate 2 04/07/22 03:00 04/07/22 07:00 04/07/22 07:00 Temperature 97.9 F 99 F Pulse Rate Pulse Rate [Left P ulse Oximeter] 79 78 78 Respiratory Rate 18 16 16 Blood Pressure Blood Pressure [Le ft Arm] 114/68 Blood Pressure [Ri ght Arm] 129/76 Pulse Oximetry 94 96 Oxygen Delivery Me thod Room Air Room Air Oxygen Flow Rate 2 DS: Data Data Completed and Pending Labs on day of discharge: Labs from last 24 hours 04/07/22 04/07/22 04/06/22 06:34 06:34 16:36 WBC 12.52 H 12.07 H RBC 3.54 L 3.84 L Hgb 11.5 L 12.5 L Hct 33.9 L 36.8 L MCV 96 96 MCH 33 33 MCHC 34 34 RDW Coeff of Fletcher 12.9 12.7 Plt Count 204 186 Neut % (Auto) 85.1 H 93.6 H Lymph % (Auto) 6.4 L 4.5 L Hanson % (Auto) 8.2 1.3 Eos % (Auto) 0.0 0.0 Baso % (Auto) 0.1 0.0 Neut # (Auto) 10.70 H 11.30 H Lymph # (Auto) 0.80 L 0.50 L Hanson # (Auto) 1.00 H 0.20 Eos # (Auto) 0.00 0.00 Baso # (Auto) 0.00 0.00 Abs Immat Gran (auto) 0.02 0.07 Sodium 137 Potassium 4.9 BUN 22 Creatinine 0.8 Estimated Creat Clear 63.65 Estimated GFR 93 Blood Type Antibody Screen 04/06/22 11:55 WBC RBC Hgb Hct MCV MCH MCHC RDW Coeff of Fletcher Plt Count Neut % (Auto) Lymph % (Auto) Hanson % (Auto) Eos % (Auto) Baso % (Auto) Neut # (Auto) Lymph # (Auto) Hanson # (Auto) Eos # (Auto) Baso # (Auto) Abs Immat Gran (auto) Sodium Potassium BUN Creatinine Estimated Creat Clear Estimated GFR Blood Type B Positive Antibody Screen NEGATIVE Discharge Plan Discharge Disposition: Home, Self-Care Discharging Surgeon: Montana Head Follow-Up Appointment: 1 week PO visit with PORTIA Prescriptions: New sennosides-docusate sodium [Senna-S] 8.6-50 mg tablet 1 - 4 tab-cap PO BID PRN (Reason: constipation) Qty: 60 0RF Rx Instructions: Hold medication if experiencing loose stools. aspirin 81 mg tablet,delayed release (DR/EC) 81 mg PO BID Qty: 50 0RF Rx Instructions: Medication to help prevent blood clots postoperatively; take TWICE daily. acetaminophen 500 mg capsule 500 - 1,000 mg PO Q6H MDD 4000mg PRNQty: 100 0RF oxycodone 5 mg tablet 2.5 - 5 mg PO Q4-6H MDD 6 PRN (Reason: pain) Qty: 42 0RF Rx Instructions: Take as needed for postop pain: 2.5mg mild pain, 5mg moderate-severe pain; wean as tolerated. rivaroxaban 10 mg tablet 10 mg PO DAILY Qty: 4 0RF Rx Instructions: Medication for deep vein clot prevention post surgery. Complete this medication before starting Aspirin. Discontinued tramadol 50 mg tablet 50 mg PO QID PRN No Action albuterol sulfate [Ventolin HFA] 90 mcg/actuation HFA aerosol inhaler 2 inh inhalation Q4H PRN celecoxib [Celebrex] 200 mg capsule 200 mg PO BID fluticasone propionate [24 Hour Allergy Relief] 50 mcg/actuation spray,suspension 1 spray intranasal DAILY PRN Rx Instructions: administer into each nostril lisinopril 20 mg tablet 20 mg PO DAILY mometasone 0.1 % ointment 1 applic topical DAILY sildenafil [Viagra] 100 mg tablet 100 mg PO DAILY PRN Rx Instructions: administer 30 minutes to 4 hours before activity acetaminophen [Acetaminophen Extra Strength] 500 mg tablet 1,000 mg PO Q6H PRN Activity Level: Activity as Tolerated, Weight Bearing as Tolerated, Use Cane and Use Walker Discharge Diet: Regular Patient Instructions: Surgical Site Infections (DC) Additional Instructions: Wound: ?Do not remove original dressing; we will remove this at first postop visit in 1 week. Only remove dressing if integrity is in question. ?No immersing wound in water; showering okay; light scrub with your hand and body soap, rinse, dab dry ?Sutures are under the skin, will dissolve; allow surgical glue to come off naturally; do not scrub the wound or apply ointments/lotions ?Call our office with any redness that streaks, excessive drainage from the wound, or wound gapping. Ice/Elevate: ?Ice as needed for swelling and discomfort (cryocuff or ice pack); elevate frequently above the heart JOSEFINA socks: ?Wear for 1 month, remove for 1 hour 3 times per day ?These are frustrating to take on/off, but are important for blood clot prevention for 1 month after surgery Blood Clot Prevention (DVT): ?Medication: Rivaroxaban, and transition to 81 mg aspirin by mouth twice daily (total one month of protection). Driving: ?Do not drive while taking narcotic pain medication ?Anticipate 4-6 weeks no driving if operative leg is driving leg Dental: ?No elective dental work for 6 months post-op. If there is an urgent/emergent dental need, contact our office for an antibiotic prescription. Smoking/Alcohol: ?Do not smoke; do no drink alcohol especially when taking postoperative oral narcotic medication Seek Care from you Primary Care Provider if you experience the following issues in the postoperative phase and beyond: ?Bacterial infections such as: pneumonia, bacterial skin infection (cellulitis), UTI, high fever, chills unrelated to the operative body part - call your primary care physician urgently for treatment in hopes to protect your health and the metal implant. Referrals: ?PT, OT per patient preference - evaluate treat total hip arthroplasty protocol (gait training, ROM, ADLs) Follow up: ?Ortho surgeon follow-up in 6 weeks; repeat radiographs AP pelvis, cross-table lateral operative hip ?PA-C visit in 1 week *If there are any acute concerns regarding your surgery, please call our orthopedic clinic ([phone]) Forms: Work/Release Restrictions Follow-up: FRED FAY DO [Primary Care Provider] - Faustino Castaneda PA-C [Physician Sales Support Associate] - 11/10/22 8:30 am (At the [facility]. [phone]) Discharge Orders: Discharge Order (Routine); Ordered 04/07/22 Ordered By: Faustino Castaneda
--- NOTE | 2022-04-07 10:00 | PC.SOCIAL ---
Addendum entered by AFTAB Amaro 04/07/22 13:37: Social work news intern note reviewed. AFTAB Hillman Original Note: Discharge planning: Social work met with pt. and about discharge. Pt. explained that house is safe and accessible for him, including shower bench and toileting equipment. Pt. has spouse for support and nearby people to call if needed. Pt. expressed no further concerns and knows he can reach out to the hospital about any future concerns or questions.
--- NOTE | 2022-04-07 12:01 | PC.NURSE ---
Discharge: Patient pleasant and cooperative. Patient vitally stable, lungs clear, BS WNL, IV removed, catheter intact. Patient 1 assist, walker, gb, rating pain at most 3/10, 10 mg of oxy given twice. Patient tolerating regular diet and urinating. Patient signed belongings sheet and discharge form. Patient had no further questions regarding discharge education. Patient left the floor by wheelchair with belongings at 1059.
== END 2022-04-07 10:59 | disposition home or self-care (01) ==
LOC: OR 10:28 → MEDSURG 04-07 05:17
PROVIDERS: Family Medicine; PCP Student in an Organized Health Care Education/Training Program; Visit Provider Orthopaedic Surgery Sports Medicine
PROC: (CPT 27130; principal; 2022-04-06 12:30)
DX: M16.12 Unilateral primary osteoarthritis, left hip (principal); D62 Acute posthemorrhagic anemia; I95.81 Postprocedural hypotension; G47.33 Obstructive sleep apnea (adult) (pediatric); I10 Essential (primary) hypertension; K21.9 Gastro-esophageal reflux disease without esophagitis; J45.909 Unspecified asthma, uncomplicated
CPT/HCPCS: 27130; 01214; 36415; 64450; 73501; 76942; 82565; 84132; 84295; 84520; 85025; 86850; 86900; 86901; 97116; 97161; 97165; 97535; 99100; A9270; C1776; J0690; J1100; J2250; J2370; J2405; J2704; J2795; J3010; J7120

== ENCOUNTER 2022-04-27 11:30 | Outpatient (RCR) | payer MEDICARE, BC, SELFPAY ==
--- NOTE | 2022-03-30 11:00 | PT.OPEX ---
PT [facility] Eval PT [facility] Eval Start: 03/30/22 08:56 Freq: Status: Active Protocol: Document 03/30/22 08:57 ENM (Rec: 03/30/22 10:55 ENM [id number]) E-signed By Radha Calderon DPT Physical Therapy Outpatient Evaluation Insurance Information Recert Due Date 06/22/22 Insurance Name Medicare B Medical Diagnosis unilateral primary osteoarthritis left hip presence of unspecified artificial hip joint Treating Diagnosis left hip pain, decreased hip ROM, impaired gait, Referring MD Head Subjective Subjective Patient presents to PT for pre -op appointment prior to L DAVID on 04/06/22 to be performed by . Patient was seen for PT previously for hip and left leg pains without relief of symptoms. Pains have been getting worse with standing, carrying objects and sitting in the car. He finds himself limping more. He had to wait 90 days since last cortisone injection before being able to get hip replaced . Also has a history for right femur fracture and repair. He has not been able to stay active due to pain. Has been using tramadol for pain. PMHx: arthritis Pain Comments moderate-severe pain Current Work Status Retired Objective Other/Pertinent Objective ROM L knee 0-0-122 R knee 0-0-124 R hip flexion, IR and ER WNL L hip flexion 95 before pain, IR and ER limited secondary to pain strength: did not formally assess secondary to pain gait/balance: Patient ambulating with antalgic gait pattern, decreased WB LLE and decreased L hip extension palpation/joint mobility: no tenderness to palpation along anterior or lateral hip other: Patient with limited tolerance for standing needing to offload LLE by just having toe down Assessment Assessment/Impression Patient is a 71 year old male presenting for pre-op visit prior to L DAVID on 04/06/22. Patient has difficulty at this time with ambulation, putting on socks, sitting and standing due to hip pains. Pains have continued to get worse and have limited patients ability to stay active. They will have support from spouse at home and have necessary assistive devices/ home modifications. Patients goal is to be able to be more active without pain after surgery. Upon assessment patient displays decreased hip ROM, decreased proximal hip strength secondary to pain and antalgic gait pattern. Patient with significant pains during hip flexion and hip IR , less so with ER. With transition from hip flexion to extension this is most bothersome for pain. Standing tolerance limited with patient having to offload LLE with toe touch weight bearing. Patient will be seen post operatively to reassess impairments that will be addressed with skilled care. Ambrosio would greatly benefit from skilled PT in order to progress strength, ROM, balance and ambulation post operatively to return toward PLOF with functional mobility and recreational activities. Primary Functional Limitations standing, walking, putting on socks, sitting in car Plan of Care Rehabilitation Potential Good Physical Therapy Goals After pre-op visit: ? Patient will be independent with HEP ? Patient will verbalize knowledge of stair navigation and proper sequencing ? Patient will have knowledge on home adaptations and use of assistive devices post operatively ? Patient will have knowledge of edema management Coordination/Communication With Referral Source Treatment Plan/Direct Interventions Gait Training,Ice/Cold/ Vasopneumatic,Joint Mobilization,Manual Therapy, Neuromuscular Re-ed,Self-Care/ Home Management,Therapeutic Activities,Therapeutic Exercises Frequency/Duration 1x visit prior to surgery on 04/06/22. Patient scheduled to start outpatient PT s/p L DAVID on 04/13/22. Has HEP to start with pre-operatively. Post op frequency 1x a week for 5-6 visits Patient Will Be Discharged From Therapy Completion of LTG(s), Independent w/HEP Evaluation Billing Untimed Code Treatment Minutes 25 Complexity Low Certification Information Initial Certification Date 03/30/22 Ending Certification Date 06/22/22 Provider Signature Shows Agreement With POC & Medical Necessity Physician Signature & Date Requested Please Sign/Date Here Physician Comment/Change : Physician NPI Number #
--- NOTE | 2022-04-13 09:53 | PT.OPDNX ---
PT [place] Out[facility] Daily Note PT [facility] Outpatient Daily Note Start: 03/30/22 08:56 Freq: Status: Active Protocol: Document 04/13/22 08:40 ENM (Rec: 04/13/22 09:51 ENM [id number]) E-signed By Radha Calderon DPT PT OP Daily Progress Note Visit Information Note Type Re-Evaluation Visit Number 2 Insurance Information Recert Due Date 06/22/22 Insurance Name Medicare B Medical Diagnosis unilateral primary osteoarthritis left hip presence of unspecified artificial hip joint Treating Diagnosis left hip pain, decreased hip ROM, impaired gait, impaired balance, decreased proximal hip strength Referring MD Adilene Subjective Subjective Patient presents to PT s/p L DAVID anterior approach on 04/06. Patient states that he has had steady progress in terms of movement since surgery. He has been working to get on/off the toilet himself now. He is still using the walker for longer distances. Otherwise he started using the cane 2-3 days ago. In the kitchen he has been going around without AD at times. He is taking tylenol for pain relief. He has been able to sit and stand more comfortably now. He is icing consistently. The most difficult things are lifting the leg and bending to reach for things. Walking is going ok, he has not tried stairs yet. Pain Comments at its worse 3/10 average 2/10 Home Exercise Home Exercise Comments pre op exercises including: QS , ankle pumps, GS, HS set, supine heel slide, standing hip abduction Objective Other/Pertinent Objective Knee ROM L knee 0-0-122 R knee 0-0-124 hip ROM L active hip flexion 71 passively able to get to 90 degs without discomfort strength: good quad set small SLR with mod assist from therapist gait/balance: Patient ambulating with SEC initially decreased WB through LLE with decreased step length. Improving step length throughout ambulation bout palpation/joint mobility: slight tenderness to palpation mid L quad swelling/observation: bandaging over incision Other: able to perform STS with use of hands and equal WB having to physically assist LLE in/out of bed Patient Instructed in Risks/Benefits Yes Therapeutic Exercise Therapeutic Exercise Minutes (minutes) 22 Therapeutic Exercise: To Restore -GS 10x5s holds Functional Status -QS 10x5s holds -SAQ 10x3s holds * -heel slides -standing hip abduction x10B -standing double heel raises 2x10* -standing mini squats at counter x10* -modified tandem B legs leading -LAQ x10 -Nustep seat at 9 LE/UE level 2 working on hip ROM x5 mins *added to home program Gait & Stair Training Gait Training/Stairs Minutes (minutes) 3 Gait & Stair Training Comments -ambulation with SEC working on evening out stance time, step length and quad activation of LLE throughout gait cycle. Patient able to implement and sustain throughout ambulation bout. Not heavily relying on cane for support Treatment Minutes Untimed Code Treatment Minutes 18 Timed Code Treatment Minutes 25 Total Treatment Time 43 Billing Units Therapeutic Exercise Units 2 Re-Evaluation Units 1 Assessment/Impression Assessment/Impression Patient returns to PT for evaluation 1 week s/p L DAVID DOS 04/06/22. Overall patient stating minimal pain 2-3/10 at its worse. He reports improvements in mobility every day since the surgery. Sitting and standing tolerance has improved significantly compared to before the surgery . Main difficulties at this time are being able to lift the leg in/out of bed or the car. Upon assessment patient with decreased hip ROM, impaired gait, impaired balance, decreased quad strength and swelling. Active hip flexion to 71 degs, passively to 90 degs. Primary gait impairments with use of SEC is decreased step length and stance time of LLE. Impairments consistent with s/p DAVID. Patient would greatly benefit from skilled PT to address impairments stated above in order to perform all functional and recreational activities without significant difficulty or discomfort post operatviely. Plan of Care Physical Therapy Goals Post op goals: In 4-5 visits: 1. Patient will be able to lift leg in/out of bed or car without pain or physical assistance to improve ease of car or supine<>sit transfer 2. Patient will stand/walk up to 20 minutes without use of AD or report of increased hip pain 3. Patient will perform x5 STS with improved form, no use of arms and no pain for improved ease of transfers 4. Patient will A/D flight of 10 steps reciprocally with symmetric WB for improved navigation of household Daily Plan of Care Continue per POC Daily Plan of Care Comments Plan: progress quad strength (LAQ) SLS step ups ambulation without SEC standing marches bridging SL hip exercises as able Recertification Information Provider Signature Shows Agreement With POC & Medical Necessity
== END 2022-07-03 14:57 | disposition home or self-care (01) ==
PROVIDERS: PCP Student in an Organized Health Care Education/Training Program; Visit Provider Orthopaedic Surgery Sports Medicine
DX: M16.12 Unilateral primary osteoarthritis, left hip (principal); Z51.89 Encounter for other specified aftercare
CPT/HCPCS: 97110; 97161; 97164

== ENCOUNTER 2023-05-24 06:58 | Outpatient (CLI) | payer MEDICARE, BC, SELFPAY | END 2023-05-24 06:59 | disposition home or self-care (01) | LOC: AMB 05-25 12:13 | PROVIDERS: PCP Student in an Organized Health Care Education/Training Program; Visit Provider Family Medicine | DX: R42 Dizziness and giddiness (principal) | CPT/HCPCS: A0425; A0427 ==

== ENCOUNTER 2023-05-24 07:27 | Inpatient (IN) | payer MEDICARE, BC, SELFPAY ==
[2023-05-24] VITALS (14 sets, daily range): BP systolic 129–177; BP diastolic 71–129; PULSE 64–89; RESP 12–18; TEMP 35.9–37.1; O2SAT 92–98; BMI 31.2; BMI 32.0
--- NOTE | 2023-05-24 08:00 | ED.NURSE ---
Per Ania, Charge nurse, informed of symptoms and states to not call Stroke Code.
--- NOTE | 2023-05-24 08:16 | CRLHL7_ITS ---
For Patients: As a result of the Century Cures Act, medical imaging exams and procedure reports are released immediately into your electronic medical record. You may view this report before your referring provider. If you have questions, please contact your health care provider. INDICATION: Vertigo. TECHNIQUE: MRI brain: Multiplanar Multisequence MR imaging acquired prior to and following intravenous contrast. MRA neck: [id number] and postcontrast imaging acquired. COMPARISON: None. FINDINGS: MRI brain: Prominence of the ventricles and sulci compatible with mild diffuse cerebral volume loss. No mass effect or midline shift. Minimal FLAIR hyperintensities in the supratentorial white matter, typical for chronic microvascular ischemic changes. No diffusion restriction to suggest acute infarction. No intracranial hemorrhage or pathologic extra-axial fluid collection. No pathologic intracranial enhancement. The major arterial flow voids of the skullbase are preserved. The globes are symmetric. The paranasal sinuses are well aerated. Trace mastoid fluid bilaterally. MRA neck: The innominate and subclavian arteries are widely patent. The common carotid arteries are widely patent. The internal carotid arteries are widely patent. The left vertebral artery is dominant. The vertebral arteries are widely patent. IMPRESSION: 1. No acute intracranial abnormality. 2. Mild diffuse cerebral volume loss and minimal chronic microvascular ischemic changes. 3. Unremarkable MRA of the neck. Dictated by Narinder Polanco MD @ 05/24/2023 10:49:54 AM (Electronically Signed)
--- NOTE | 2023-05-24 08:16 | CRLHL7_ITS ---
For Patients: As a result of the Century Cures Act, medical imaging exams and procedure reports are released immediately into your electronic medical record. You may view this report before your referring provider. If you have questions, please contact your health care provider. INDICATION: Vertigo. TECHNIQUE: 3D [id number] magnetic resonance angiography of the head with 3D MIP reconstructions provided. COMPARISON: None. FINDINGS: No proximal large vessel occlusion. The anterior cerebral arteries are patent. The middle cerebral arteries are patent. The posterior cerebral arteries are patent. The intradural vertebral arteries and basilar artery are patent. The intracranial internal carotid arteries are patent. No aneurysm or high flow vascular malformation. IMPRESSION: IMPRESSION 1. Normal appearance of the intracranial arterial circulation, with no proximal large vessel occlusion, flow limiting stenosis or other vascular abnormality. Dictated by Alejandro Finley MD @ 05/24/2023 10:28:08 AM (Electronically Signed)
[2023-05-24] MEDS: LORazepam 2 MG/ML inj 1 MG IVP (08:40)
[2023-05-24 08:47] LABS: Basophils Absolute Auto 0.02 K/uL (0.00-0.30); Basophils Percent Auto 0.2 % (0.0-3.0); Eosinophils Absolute Auto 0.11 K/uL (0.00-0.50); Eosinophils Percent Auto 1.3 % (0.0-7.0); Hematocrit 43.8 % (37.0-53.0); Hemoglobin* 15.2 gm/dL (13.5-17.5); Immature Granulocytes Abs Auto 0.02 K/uL (0.00-0.30); Immature Granulocytes Pct Auto 0.2 %; Lymphocytes Percent Auto 9.7 % (20-44); Mean Corpuscular HGB Conc 35 gm/dL (32-36); Mean Corpuscular Hemoglobin 32 pg (26-34); Mean Corpuscular Volume 93 fL (80-100); Neutrophils Percent Auto 84.6 % (42.0-72.0); Platelet Count* 185 K/uL (140-440); RDW Coefficient of Variation % 12.4 % (11.5-15.5); Red Blood Count 4.73 m/uL (4.30-5.90); White Blood Count* 8.45 K/uL (4.50-11.00)
[2023-05-24 08:48] LABS: Slide Review Reflex No
--- NOTE | 2023-05-24 08:54 | ED.GENADULT ---
HPI - General Adult General Date Seen: 05/24/23 Chief complaint: Syncope/Fainted Stated complaint: Vertigo Time Seen by Provider: 05/24/23 08:03 Source: patient, EMS, RN notes reviewed and old records reviewed Mode of arrival: EMS Limitations: no limitations History of Present Illness HPI narrative: Patient is a 72-year-old male with a history of hypertension, no prior history of stroke or coronary artery disease, who awakened this morning with vertigo. He says as soon as he opened his eyes he felt dizzy, and when he sat up the room started to spin. He has had nausea, a little bit of emesis. He does not have any pain. He has not noted any other neurologic symptoms. He says he was not able to walk, was stumbling around and almost fell over trying to get dressed. He had an episode of vertigo about 25 years ago that he says was milder, he was able to drive to the clinic and was treated with something, he does not recall what. He improved without incident. He felt normal when he went to bed last night. No recent trauma or illness. Not anticoagulated. Related Data Home Medications Medication Instructions Recorded Confirmed albuterol sulfate 90 mcg/actuation 2 inh inhalation Q4H PRN 04/03/22 01/19/23 aerosol inhaler (Ventolin HFA) fluticasone propionate 50 1 spray intranasal DAILY PRN 04/03/22 01/19/23 mcg/actuation nasal spray,suspension (24 Hour Allergy Relief) lisinopril 20 mg tablet 20 mg PO DAILY 04/03/22 01/19/23 mometasone 0.1 % topical ointment 1 applic topical DAILY 04/03/22 01/19/23 sildenafil 100 mg tablet (Viagra) 100 mg PO DAILY PRN 04/03/22 01/19/23 acetaminophen 500 mg tablet 1,000 mg PO Q6H PRN 04/06/22 01/19/23 (Acetaminophen Extra Strength) Previous Rx's Medication Instructions Recorded omeprazole 10 mg capsule,delayed 10 mg PO QDAY #14 caps 04/16/22 release Allergies Allergy/AdvReac Type Severity Reaction Status Date / Time No Known Drug Allergies Allergy Verified 01/19/23 13:55 Review of Systems Status of ROS: Reports: 10 or more systems reviewed and unremarkable except as noted in History and below PFSH PFS Medical History Migraine ?G43.909 - Migraine, unspecified, not intractable, without status migrainosus (ICD-10) Hypertension ?I10 - Essential (primary) hypertension (ICD-10) Osteoarthritis of left hip ?M16.12 - Unilateral primary osteoarthritis, left hip (ICD-10) Fracture of femoral neck, right ?S72.001A - Fracture of unspecified part of neck of right femur, initial encounter for closed fracture (ICD-10) GERD (gastroesophageal reflux disease) ?K21.9 - Gastro-esophageal reflux disease without esophagitis (ICD-10) Sleep apnea ?G47.30 - Sleep apnea, unspecified (ICD-10) Asthma ?J45.909 - Unspecified asthma, uncomplicated (ICD-10) Surgical History 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) ?Z96.642 - Presence of left artificial hip joint (ICD-10) History of foot surgery (08/05/20) ?Z98.890 - Other specified postprocedural states (ICD-10) History of surgery on lower extremity (07/13/18) ?Z98.890 - Other specified postprocedural states (ICD-10) History of arthroscopy of right knee (~1994) ?Z98.890 - Other specified postprocedural states (ICD-10) Family History (Updated 03/31/22 @ 09:34 by Abbey White RN) Maternal Grandmother Diabetes Brother Skin cancer Social History Highest level of school completed/degree received: Doctoral degree Smoking Status: Never smoker Do you use any of these nicotine containing products: None How often do you have a drink containing alcohol: never AUDIT-C Alcohol total score: 0 Non-prescribed substance use: denies use Caffeine: Yes (coffee, 3 mugs/day) Exam Narrative: Exam Narrative: Vital signs as noted above. In general, an alert, nontoxic elderly male. He is sitting in bed with his eyes closed. Head: Normocephalic, atraumatic. Eyes: Pupils are equal reactive. Extraocular movements are full. No significant nystagmus at this time. Conjunctivae are normal. ENT: Mucous membranes are moist. Tongue is midline. Neck: Supple without lymphadenopathy. Heart: Regular rate and rhythm. No murmur or rub. Lungs: Clear bilaterally. No increased work of breathing, crackles or wheezes. Abdomen: Soft and nontender. No organomegaly. Extremities: Well perfused. No edema. No calf tenderness. Pulses intact. Neurologic: Patient is alert and oriented to person and place. Speech is fluent. Face is symmetric. Moves all extremities equally. Gait not assessed. Cerebellar function intact by finger-nose and heel-fortune testing. Affect: Normal. Skin: Warm and dry. Well perfused. Const: Vital Signs, click to edit/add: Vital Signs - 24 hr 05/24/23 07:39 05/24/23 08:00 05/24/23 08:30 Temperature 96.7 F L Pulse Rate 89 80 Pulse Rate [Right Pulse Oximeter] 72 Respiratory Rate 18 16 14 Blood Pressure 166/89 H 152/71 H Blood Pressure [Ri ght Upper Arm] 177/98 H Pulse Oximetry 93 94 96 Oxygen Delivery Me thod Room Air 05/24/23 09:05 05/24/23 11:23 05/24/23 12:30 Temperature Pulse Rate 69 68 67 Pulse Rate [Right Pulse Oximeter] Respiratory Rate 14 14 Blood Pressure 132/77 149/129 H Blood Pressure [Ri ght Upper Arm] Pulse Oximetry 92 95 97 Oxygen Delivery Me thod 05/24/23 13:01 Temperature Pulse Rate 67 Pulse Rate [Right Pulse Oximeter] Respiratory Rate 14 Blood Pressure 163/91 H Blood Pressure [Ri ght Upper Arm] Pulse Oximetry 96 Oxygen Delivery Me thod Documenting provider has reviewed patient's vital signs: yes Course Course ED Course: Following initial evaluation patient had an EKG which confirms normal sinus rhythm, ventricular rate of 62. He had Zofran in the ambulance which did help somewhat although he still feels symptomatic. Will add meclizine and Ativan. Overall, my suspicion is highest for peripheral cause, but given his age and abrupt onset will obtain MRI to rule out a central process. I ordered basic labs, CBC shows a normal white blood cell count, hemoglobin of 15.2. Metabolic panel is pending at this time. MRI read as negative by Radiology for any ischemia or vascular abnormalities. After meclizine and Ativan he still felt very nauseated so he also had Phenergan 12.5 mg. His metabolic panel is unremarkable. He has continued to have significant vertigo, and after trying to ambulate with a walker does not feel he can manage at home. Plan will be admission for observation and symptomatic management. Vital Signs Vital signs: Initial Vital Signs Temperature 96.7 F L 05/24/23 07:39 Temperature Source Temporal Artery Scan 05/24/23 07:39 Pulse Rate 72 05/24/23 07:39 Respiratory Rate 18 05/24/23 07:39 Blood Pressure 177/98 H 05/24/23 07:39 Blood Pressure Mean 124 H 05/24/23 07:39 Blood Pressure Position Sitting 05/24/23 07:39 Pulse Oximetry 93 05/24/23 07:39 Oxygen Delivery Method Room Air 05/24/23 07:39 Vital Signs Temperature 96.7 F L 05/24/23 07:39 Pulse Rate 72 05/24/23 07:39 Respiratory Rate 18 05/24/23 07:39 Blood Pressure 177/98 H 05/24/23 07:39 Pulse Oximetry 93 05/24/23 07:39 Oxygen Delivery Method Room Air 05/24/23 07:39 Temperature 96.7 F L 05/24/23 07:39 Pulse Rate 67 05/24/23 13:01 Respiratory Rate 14 05/24/23 13:01 Blood Pressure 163/91 H 05/24/23 13:01 Pulse Oximetry 96 05/24/23 13:01 Oxygen Delivery Method Room Air 05/24/23 07:39 Medications Administered Medications: Discontinued Medications Generic Name Dose Route Start Last Admin Trade Name Tony PRN Reason Stop Dose Admin Lorazepam 1 mg 05/24/23 08:16 05/24/23 08:40 Lorazepam 2 Mg/Ml Inj IVP 05/24/23 08:17 1 mg ONCE ONE Administration Meclizine HCl 25 mg 05/24/23 08:16 05/24/23 10:28 Meclizine Hcl 25 Mg Tablet PO 05/24/23 08:17 25 mg ONCE ONE Administration Promethazine HCl 12.5 mg 05/24/23 11:27 05/24/23 11:55 Promethazine 25 Mg/Ml Inj IVP 05/24/23 11:28 12.5 mg ONCE ONE Administration Medical Decision Making Lab Data Labs: Lab Results 05/24/23 Range/Units 08:40 WBC 8.45 (4.50-11.00) K/uL RBC 4.73 (4.30-5.90) m/uL Hgb 15.2 (13.5-17.5) gm/dL Hct 43.8 (37.0-53.0) % MCV 93 (80-100) fL MCH 32 (26-34) pg MCHC 35 (32-36) gm/dL RDW Coeff of Fletcher 12.4 (11.5-15.5) % Plt Count 185 (140-440) K/uL Neut % (Auto) 84.6 H (42.0-72.0) % Lymph % (Auto) 9.7 L (20-44) % Hernando % (Auto) 4.0 (0.0-11.0) % Eos % (Auto) 1.3 (0.0-7.0) % Baso % (Auto) 0.2 (0.0-3.0) % Neut # (Auto) 7.10 H (1.7-7.0) K/uL Lymph # (Auto) 0.80 L (0.90-2.90) K/uL Hernando # (Auto) 0.30 (0.00-0.90) K/UL Eos # (Auto) 0.11 (0.00-0.50) K/uL Baso # (Auto) 0.02 (0.00-0.30) K/uL Abs Immat Gran (auto) 0.02 (0.00-0.30) K/uL Imm/Tot Granulo (auto) 0.2 % Sodium 137 (135-149) mmol/L Potassium 4.2 (3.6-5.1) mmol/L Chloride 104 (96-114) mmol/L Carbon Dioxide 24 (20-32) mmol/L Anion Gap 9 (7-15) mEq/L BUN 19 (7-30) mg/dL Creatinine 0.8 (0.5-1.5) mg/dL Estimated Creat Clear 62.70 Estimated GFR 93 ml/min Glucose 127 H (60-115) mg/dL Calcium 8.7 (8.4-10.6) mg/dL Discharge Plan Discharge Clinical Impression: Peripheral vertigo Patient Disposition: Admitted As Observation Condition: Stable
[2023-05-24 08:58] LABS: Chloride* 104 mmol/L (96-114); Potassium* 4.2 mmol/L (3.6-5.1); Sodium* 137 mmol/L (135-149)
[2023-05-24 09:01] LABS: Anion Gap 9 mEq/L (7-15); Blood Urea Nitrogen* 19 mg/dL (7-30); Carbon Dioxide* 24 mmol/L (20-32); Creatinine* 0.8 mg/dL (0.5-1.5); Estimated Glomerular Filt Rate 93 ml/min; Glucose* 127 mg/dL (60-115)
[2023-05-24 09:02] LABS: Calcium* 8.7 mg/dL (8.4-10.6)
[2023-05-24] MEDS: MECLIZINE HCL 25 MG TABLET PO ×2 (10:28→17:43)
[2023-05-24] MEDS: PROMETHAZINE 25 MG/ML INJ 12.5 MG IVP (11:55)
--- NOTE | 2023-05-24 13:25 | ED.NURSE ---
Pt feeling worse after ambulating around nurse's station with walker. Pt noted to have stable gait, but reports worsening dizziness/vertigo. States he would have been unable to ambulate without walker. notified.
[2023-05-24] MEDS: 0.9 % SODIUM CHLORIDE 500 ML 500 ML IV (13:35)
--- NOTE | 2023-05-24 15:21 | P.IMHP_ITS ---
Hospitalist- H&P: HPI History of Present Illness Date Seen: 05/24/23 Chief complaint: Vertigo Narrative: Ambrosio Abel is a 72 year old male past medical history significant for hypertension on lisinopril, osteoarthritis, GERD previously on PPI, asthma currently well managed is admitted to the medical floor from the ED for persistent positional vertigo. Patient reports he had a previous episode of vertigo approximately 25 years ago. Patient tells me that he awoke this morning not feeling right. When he got up to do his normal morning routine, he felt ?wobbly? and was stumbling, nauseous, and vomited. This has improved somewhat since being treated in the ED. ED did attempt to have him ambulate to see if he was safe enough to go home but was unable to tolerate secondary to ongoing vertigo symptoms. Currently, he denies a headache. He is able to sit up reclined in bed but reports counter clockwise movement of the room around him. He did vomit upon arrival to the floor. Currently is not nauseous. Denies recent fevers. No change in urination or bowel movements. Denies recent chest pain or shortness of breath. Reports a cough with nasal congestion which started 5 days ago. Slightly improved after taking NyQuil and DayQuil. Otherwise denies recent travel, change in medications, known exposures other than recently being in large groups of people at sporting events. Never smoked. Denies alcohol use. Review of Systems Narrative: REVIEW OF SYSTEMS: Complete review of systems performed and negative unless otherwise stated in HPI or below. [facility] Medical History Migraine ?G43.909 - Migraine, unspecified, not intractable, without status migrainosus (ICD-10) Hypertension ?I10 - Essential (primary) hypertension (ICD-10) Osteoarthritis of left hip ?M16.12 - Unilateral primary osteoarthritis, left hip (ICD-10) Fracture of femoral neck, right ?S72.001A - Fracture of unspecified part of neck of right femur, initial encounter for closed fracture (ICD-10) GERD (gastroesophageal reflux disease) ?K21.9 - Gastro-esophageal reflux disease without esophagitis (ICD-10) Sleep apnea ?G47.30 - Sleep apnea, unspecified (ICD-10) Asthma ?J45.909 - Unspecified asthma, uncomplicated (ICD-10) Surgical History 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) ?Z96.642 - Presence of left artificial hip joint (ICD-10) History of foot surgery (08/05/20) ?Z98.890 - Other specified postprocedural states (ICD-10) History of surgery on lower extremity (07/13/18) ?Z98.890 - Other specified postprocedural states (ICD-10) History of arthroscopy of right knee (~1994) ?Z98.890 - Other specified postprocedural states (ICD-10) Family History Maternal Grandmother Diabetes Brother Skin cancer Social History What is your current living situation?: I presently have a place to live Problems where you live: no known problems Problems where you live details: no Known problems In the past 12 months, utilities in danger of being shut off: no In past 12 months, lack of transportation kept you from medical appts, meetings, work, or getting things needed for daily living: no In the past 12 mos, have been you worried that your food would run out before you had money to buy more?: often true In the past 12 mos, the food you bought just didn't last and you didn't have money to buy more?: often true Highest level of school completed/degree received: Doctoral degree Smoking Status: Never smoker Do you use any of these nicotine containing products: None How often do you have a drink containing alcohol: never AUDIT-C Alcohol total score: 0 Non-prescribed substance use: denies use Caffeine: Yes (coffee, 3 mugs/day) How often does anyone, including family, friends and others, physically hurt you : never How often does anyone, including family, friends and others, insult or talk down to you: never How often does anyone, including family, friends and others, threaten you with harm: never How often does anyone, including family, friends and others, scream or curse at you: never service: Yes Meds Home Medications and Allergies Home Medications Medication Instructions Recorded Confirmed Type albuterol sulfate 90 mcg/actuation 2 inh inhalation Q4H PRN 04/03/22 05/24/23 History aerosol inhaler (Ventolin HFA) fluticasone propionate 50 1 spray intranasal DAILY PRN 04/03/22 05/24/23 History mcg/actuation nasal spray,suspension (24 Hour Allergy Relief) lisinopril 20 mg tablet 20 mg PO DAILY 04/03/22 05/24/23 History mometasone 0.1 % topical ointment 1 applic topical DAILY 04/03/22 05/24/23 History sildenafil 100 mg tablet (Viagra) 100 mg PO DAILY PRN 04/03/22 05/24/23 History acetaminophen 500 mg tablet 1,000 mg PO Q6H PRN 04/06/22 05/24/23 History (Acetaminophen Extra Strength) Allergies Allergy/AdvReac Type Severity Reaction Status Date / Time No Known Drug Allergies Allergy Verified 01/19/23 13:55 Exam Narrative: Exam Narrative: PHYSICAL EXAM General: Pleasant, sitting up in a reclined in bed, holding head still, otherwise NAD HEENT: Normocephalic, atraumatic, sclera white, EOMI, oral mucosa moist. Left nystagmus noted, fatigues with repeat testing Cardiovascular: RRR, S1S2. No pitting edema Pulmonary: CTA bilaterally without rhonchi, rales, expiratory wheezes. No dyspnea Abdominal: Soft, nondistended, NTTP Neurological: Alert, answering questions appropriately, cranial nerves intact, no focal findings Extremities: No gross joint deformity or swelling. AROMI. Neurovascularly intact Skin: Warm, dry. Const: Vital Signs, click to edit/add: Vital Signs - 24 hr 05/24/23 07:39 05/24/23 08:00 05/24/23 08:30 Temperature 96.7 F L Pulse Rate 89 80 Pulse Rate [Right Pulse Oximeter] 72 Respiratory Rate 18 16 14 Blood Pressure 166/89 H 152/71 H Blood Pressure [Ri ght Arm] Blood Pressure [Ri ght Upper Arm] 177/98 H Pulse Oximetry 93 94 96 Oxygen Delivery Me thod Room Air 05/24/23 09:05 05/24/23 11:23 05/24/23 12:30 Temperature Pulse Rate 69 68 67 Pulse Rate [Right Pulse Oximeter] Respiratory Rate 14 14 Blood Pressure 132/77 149/129 H Blood Pressure [Ri ght Arm] Blood Pressure [Ri ght Upper Arm] Pulse Oximetry 92 95 97 Oxygen Delivery Me thod 05/24/23 13:01 05/24/23 13:31 05/24/23 13:47 Temperature 96.7 F L Pulse Rate 67 64 Pulse Rate [Right Pulse Oximeter] 72 Respiratory Rate 14 12 12 Blood Pressure 163/91 H 129/83 Blood Pressure [Ri ght Arm] Blood Pressure [Ri ght Upper Arm] 177/98 H Pulse Oximetry 96 94 Oxygen Delivery Me thod Room Air 05/24/23 14:34 05/24/23 14:34 Temperature 97.5 F L Pulse Rate Pulse Rate [Right Pulse Oximeter] Respiratory Rate 16 12 Blood Pressure Blood Pressure [Ri ght Arm] 153/85 H Blood Pressure [Ri ght Upper Arm] Pulse Oximetry 98 98 Oxygen Delivery Me thod Room Air Room Air Hospitalist - H&P: Result Labs Labs: Short CBC 05/24/23 Range/Units 08:40 WBC 8.45 (4.50-11.00) K/uL Hgb 15.2 (13.5-17.5) gm/dL Hct 43.8 (37.0-53.0) % Plt Count 185 (140-440) K/uL BMP 05/24/23 08:40 Sodium 137 Potassium 4.2 Chloride 104 Carbon Dioxide 24 BUN 19 Creatinine 0.8 Glucose 127 H Calcium 8.7 ECG Attestation: I personally reviewed and interpreted this ECG as follows: Interpretation: NSR, possible left atrial enlargement, ventricular rate 62, QTC 412 Imaging MR Brain: Attestation: I have reviewed the pertinent imaging results. Radiologist's impression: MRI brain: Multiplanar Multisequence MR imaging acquired prior to and following intravenous contrast. MRA neck: [id number] and postcontrast imaging acquired. COMPARISON: None. FINDINGS: MRI brain: Prominence of the ventricles and sulci compatible with mild diffuse cerebral volume loss. No mass effect or midline shift. Minimal FLAIR hyperintensities in the supratentorial white matter, typical for chronic microvascular ischemic changes. No diffusion restriction to suggest acute infarction. No intracranial hemorrhage or pathologic extra-axial fluid collection. No pathologic intracranial enhancement. The major arterial flow voids of the skullbase are preserved. The globes are symmetric. The paranasal sinuses are well aerated. Trace mastoid fluid bilaterally. MRA neck: The innominate and subclavian arteries are widely patent. The common carotid arteries are widely patent. The internal carotid arteries are widely patent. The left vertebral artery is dominant. The vertebral arteries are widely patent. IMPRESSION: 1. No acute intracranial abnormality. 2. Mild diffuse cerebral volume loss and minimal chronic microvascular ischemic changes. 3. Unremarkable MRA of the neck. MR - Other: Attestation: I have reviewed the pertinent imaging results. Radiologist's impression: 3D [id number] magnetic resonance angiography of the head with 3D MIP reconstructions provided. COMPARISON: None. FINDINGS: No proximal large vessel occlusion. The anterior cerebral arteries are patent. The middle cerebral arteries are patent. The posterior cerebral arteries are patent. The intradural vertebral arteries and basilar artery are patent. The intracranial internal carotid arteries are patent. No aneurysm or high flow vascular malformation. IMPRESSION: IMPRESSION 1. Normal appearance of the intracranial arterial circulation, with no proximal large vessel occlusion, flow limiting stenosis or other vascular abnormality. Assessment and Plan Assessment and plan (1) Peripheral vertigo: Problem comment: -labs negative for infectious etiology, MRI/MRA negative for CVA. Recent URI onset 5 days ago -noted left nystagmus, fatigued with repeat test -prn medications to include meclizine, Phenergan, Reglan, hydroxyzine -PT/OT consult for vertigo Status: Acute (2) Hypertension: Problem comment: -continue lisinopril, monitor Status: Acute Plan CODE: Full as discussed with patient VTE PPX: Enoxaparin Disposition: Observation, possibly discharge 05/25 pending improvement, therapy maneuvers
--- NOTE | 2023-05-24 18:37 | PC.NURSE ---
End of shift: Patient up to floor accompanied by at 1350. Patient is alert and oriented x4, Denies pain but states he feels dizzy, nauseous and had one bout of vomiting when transferring from ED wheelchair to the bed. PRN nausea medicine administered x1. Patient states the room is still spinning. Patient can ambulate SBA to BR. Patient brought his home CPAP to sleep with. Patient on Tele, NSR w/first degree HB. 18G IV in right AC, SL. Patient tolerating a reg. diet. Plan: work with therapy tomorrow to be able to be discharged back to home tomorrow. Patient refused the use of calf SCD's. Equipment in patients room in case he changes his mind.
[2023-05-24] MEDS: SODIUM CHLORIDE 0.9 % (FLUSH) 10 ML SYRINGE 5 ML IVF (21:03)
[2023-05-24] MEDS: ENOXAPARIN 40 MG/0.4 ML INJ SUBCUT (21:03)
[2023-05-24] MEDS: hydrOXYzine pamoate 25 MG CAPSULE PO (21:03)
[2023-05-24] MEDS: PROCHLORPERAZINE 5 MG/ML VIAL IV (23:00)
[2023-05-25] VITALS (12 sets, daily range): BP systolic 136–186; BP diastolic 81–102; PULSE 57–85; RESP 16–18; TEMP 36.5–37.1; O2SAT 96
[2023-05-25 06:14] LABS: Hematocrit 41.9 % (37.0-53.0); Hemoglobin* 14.6 gm/dL (13.5-17.5); Mean Corpuscular HGB Conc 35 gm/dL (32-36); Mean Corpuscular Hemoglobin 32 pg (26-34); Mean Corpuscular Volume 93 fL (80-100); Platelet Count* 197 K/uL (140-440); Red Blood Count 4.52 m/uL (4.30-5.90); White Blood Count* 8.95 K/uL (4.50-11.00)
--- NOTE | 2023-05-25 06:24 | PC.NURSE ---
End of shift [id number]: A&O, pleasant and cooperative. VSS, uses CPAP overnight. Pt reports nausea at the beginning of shift. See eMAR for intervention. Pt reports relief. SBA to bathroom. Reports some dizziness when up and moving. Uses call light appropriately. ?
[2023-05-25 06:29] LABS: Chloride* 106 mmol/L (96-114); Potassium* 4.1 mmol/L (3.6-5.1); Sodium* 138 mmol/L (135-149)
[2023-05-25 06:30] LABS: Slide Review Reflex No
[2023-05-25 06:32] LABS: Anion Gap 9 mEq/L (7-15); Carbon Dioxide* 23 mmol/L (20-32); Creatinine* 0.8 mg/dL (0.5-1.5); Estimated Glomerular Filt Rate 93 ml/min
[2023-05-25 06:33] LABS: Blood Urea Nitrogen* 15 mg/dL (7-30); Calcium* 8.7 mg/dL (8.4-10.6); Glucose* 96 mg/dL (60-115)
[2023-05-25] MEDS: MECLIZINE HCL 25 MG TABLET PO (08:20)
[2023-05-25] MEDS: FLUTICASONE PROPIONATE NASAL 1 SPRAY NOSTRIL-B (08:34)
[2023-05-25] MEDS: lisinopriL 20 MG TABLET PO (08:37)
--- NOTE | 2023-05-25 13:38 | PM.IMPN1 ---
Progress Note: A&P Assessment and plan (1) Peripheral vertigo: Problem details: - labs negative for infectious etiology, MRI/MRA negative for CVA. Recent URI (05/19/23) ddx: vestibular neuritis (most likely), BPPV, Non visualized cerebellar CVA - Nystagmus noted on exam - therapies following - prn medications to include meclizine, Phenergan, Reglan, hydroxyzine; Valium added 05/25 - given modest improvement but persistent symptoms, continue stay with PT f/u 05/26 Status: Acute (2) Hypertension: Problem details: - asymptomatic - improved with home dose of Lisinopril Status: Acute Plan - per above - likely home with on 05/26 - SCDs and ambulation for ppx - updated at bedside, questions answered Subjective Date Seen: 05/25/23 Interval history: Ambrosio was admitted to the hospital yesterday for severe vertigo, accompanied by nausea. MRI/MRA in ED reassuring. Patient feels better today, but is still symptomatic. Fairly nauseated after breakfast this morning. Has seen both PT and OT today. Requiring walker for ambulation. Specifically denies chest pain, dyspnea, palpitations. History of ocular migraines, current symptoms are not classic presentation for him. Exam Narrative: Exam Narrative: GEN: Alert and oriented, sitting comfortably in bedside chair CV: RRR, No concerning murmurs, no carotid bruits R: LCTA bilaterally without concerning wheezing Ext: wwp, no concerning edema Skin: No concerning skin lesions or rashes on exposed skin Neuro: No dysmetria on pxnokd-[id number] testing, negative pronator drift, one beat nystagmus noted bilaterally (R>L) Psych: Appropriate Const: Vital Signs, click to edit/add: Vital Signs - 24 hr 05/24/23 13:47 05/24/23 14:34 05/24/23 14:34 Temperature 96.7 F L 97.5 F L Pulse Rate Pulse Rate [Pulse Oximeter] Pulse Rate [Right Pulse Oximeter] 72 Respiratory Rate 12 16 12 Blood Pressure [Le ft Arm] Blood Pressure [Ri ght Arm] 153/85 H Blood Pressure [Ri ght Upper Arm] 177/98 H Pulse Oximetry 98 98 Oxygen Delivery Me thod Room Air Room Air 05/24/23 15:00 05/24/23 15:14 05/24/23 15:14 Temperature Pulse Rate 67 Pulse Rate [Pulse Oximeter] Pulse Rate [Right Pulse Oximeter] Respiratory Rate 16 16 Blood Pressure [Le ft Arm] Blood Pressure [Ri ght Arm] Blood Pressure [Ri ght Upper Arm] Pulse Oximetry 98 Oxygen Delivery Me thod Room Air 05/24/23 21:00 05/24/23 22:51 05/25/23 00:48 Temperature 98.8 F 98.6 F Pulse Rate 67 Pulse Rate [Pulse Oximeter] 76 Pulse Rate [Right Pulse Oximeter] Respiratory Rate 16 18 Blood Pressure [Le ft Arm] Blood Pressure [Ri ght Arm] 158/94 H 158/89 H Blood Pressure [Ri ght Upper Arm] Pulse Oximetry [address]od Room Air Room Air 05/25/23 03:00 05/25/23 08:27 05/25/23 09:25 Temperature 97.7 F 98.3 F Pulse Rate Pulse Rate [Pulse Oximeter] 68 73 71 Pulse Rate [Right Pulse Oximeter] Respiratory Rate 18 16 Blood Pressure [Le ft Arm] 173/99 H 186/99 H Blood Pressure [Ri ght Arm] 136/83 174/102 H 168/89 H Blood Pressure [Ri ght Upper Arm] Pulse Oximetry [address]od Room Air Room Air 05/25/23 11:00 Temperature 98.4 F Pulse Rate Pulse Rate [Pulse Oximeter] 57 L Pulse Rate [Right Pulse Oximeter] Respiratory Rate 16 Blood Pressure [Le ft Arm] 147/81 H Blood Pressure [Ri ght Arm] Blood Pressure [Ri ght Upper Arm] Pulse Oximetry 96 Oxygen Delivery Me thod Room Air Labs Labs: Laboratory Results - last 24 hr 05/25/23 06:03 WBC 8.95 RBC 4.52 Hgb 14.6 Hct 41.9 MCV 93 MCH 32 MCHC 35 Plt Count 197 Sodium 138 Potassium 4.1 Chloride 106 Carbon Dioxide 23 Anion Gap 9 BUN 15 Creatinine 0.8 Estimated Creat Clear 62.70 Estimated GFR 93 Glucose 96 Calcium 8.7
--- NOTE | 2023-05-25 14:57 | RESP.RT ---
Home Cpap Inspection. Patient with home cpap machine on bedside table. RN asked to inspect device. Patients device is intact, clean, free of damage, has h20 in chamber. Patient states he has no complaints with the home cpap device and has an appointment with Dr. Muhammad in August. Notified RN there are no concern with machine.
[2023-05-25] MEDS: diazePAM 5 MG TABLET PO (15:15)
[2023-05-25] MEDS: ENOXAPARIN 40 MG/0.4 ML INJ SUBCUT (20:34)
[2023-05-25] MEDS: SODIUM CHLORIDE 0.9 % (FLUSH) 10 ML SYRINGE 5 ML IVF (20:34)
[2023-05-25] MEDS: hydrOXYzine pamoate 25 MG CAPSULE PO (22:13)
[2023-05-26 02:51] VITALS: BP 139/88; PULSE 80; RESP 16; TEMP 36.6; O2SAT 96
--- NOTE | 2023-05-26 06:15 | PC.NURSE ---
End of shift [id number]: A&O, pleasant and cooperative. VSS. Pt uses home CPAP overnight. Pt reports some nausea?before bed. See eMAR for intervention. Pt reports relief. Pt denies dizziness when up and ambulating. He does state that he sill feels unsteady but ?much better overall?.?At the beginning of the shift it was noticed that the pt?s tele was reading?A-fib. Since then he has been bouncing in and out of NSR, A-flutter, and A-fib with a normal rate. Pt is asymptomatic, denying SOB or chest pain. aware. ?Tolerated meal without any nausea. Uses call light appropriately.?
[2023-05-26 06:27] LABS: Hemoglobin* 15.9 gm/dL (13.5-17.5); Mean Corpuscular HGB Conc 34 gm/dL (32-36); Mean Corpuscular Hemoglobin 32 pg (26-34); Mean Corpuscular Volume 94 fL (80-100); Platelet Count* 211 K/uL (140-440); Red Blood Count 4.99 m/uL (4.30-5.90); White Blood Count* 8.44 K/uL (4.50-11.00)
[2023-05-26 06:31] LABS: Slide Review Reflex No
[2023-05-26 06:38] LABS: Chloride* 106 mmol/L (96-114); Sodium* 140 mmol/L (135-149)
[2023-05-26 06:40] LABS: Estimated Glomerular Filt Rate 79 ml/min
[2023-05-26 06:41] LABS: Anion Gap 9 mEq/L (7-15); Blood Urea Nitrogen* 16 mg/dL (7-30); Carbon Dioxide* 25 mmol/L (20-32); Glucose* 93 mg/dL (60-115)
[2023-05-26 07:00] VITALS: PULSE 73
--- NOTE | 2023-05-26 07:34 | PC.NURSE ---
late note for 05/25/23: Sandie BAZAN notified of pt's rhythm change from NSR with occasional 1 degree block to at fib/flutter @1925. No EKG or further orders given.
[2023-05-26 08:02] VITALS: BP 145/89; PULSE 77; RESP 18; TEMP 36.6; O2SAT 96
[2023-05-26] MEDS: FLUTICASONE PROPIONATE NASAL 1 SPRAY NOSTRIL-B (09:01)
[2023-05-26] MEDS: lisinopriL 20 MG TABLET PO (09:01)
--- NOTE | 2023-05-26 10:44 | PC.NURSE ---
shift note: updated Dr. Zuniga this a.m on pt's cardiac monitoring results during the night. EKG done this a.m. No further orders at this time. Reported off to Beba SPENCER
--- NOTE | 2023-05-26 11:20 | PM.DS1 ---
DS: Providers Provider Date Seen: 05/26/23 Date of admission: 05/25/23 15:06 Primary care physician: FRED FAY DO Admitting Clinician: Jace Yu MD Consults: 05/24/23 15:14 Consult to Occupational Therapy [CONS] Routine Comment: Reason(s) for OT Consult:: Evaluate and Treat Any Restrictions?:: No Restrictions Comment: Vertigo Consult to Physical Therapy [CONS] Routine Comment: Reason(s) for PT Consult:: Evaluate and Treat Any Restrictions?:: No Restrictions Comment: Vertigo Attending Physician on discharge[facility] Discharge: 05/26/23 DS: Diagnosis Discharge Diagnosis (1) Peripheral vertigo: Status: Acute Problem details: -resolved -labs negative for infectious etiology, MRI/MRA negative for CVA. Recent URI (05/19/23) ddx: vestibular neuritis (most likely), BPPV, Non visualized cerebellar CVA (2) Cardiac arrhythmia: Status: Acute Problem details: overnight of 05/25-05/26 - possible AFIB/FLUTTER noted - not captured on ECG and morning ECG was NSR. will send home with HOLTER 48 hour and have him see PCP and cardiology in f/u DS: Summary Hospital Course Hospital Course: FINAL DIAGNOSIS/FOLLOW UP ISSUES: -possible arrhythmia: Clinically may not even be significant. Was not captured on EKG. I will send him home on a 48 hour Holter monitor. This can be followed up by PCP and or outpatient cardiology. Both appointment requests were placed at discharge. -vertigo - likely viral in nature. Resolved with Apley maneuvers, Valium, supportive meds and time. BRIEF HOSPITAL COURSE: Patient was admitted for 2 days. Synopsis of acute inpatient issues are outlined above. Chronic medical conditions with notable findings outlined above. DISCHARGE MEDICATIONS: See Reconciled list - SIGNIFICANT CHANGES: P.r.n. Valium, p.r.n. Zofran Specific instructions to the patient and follow-up are outlined below. REVIEW OF SYSTEMS No new chest pain or dyspnea Pain controlled No voiding difficulties Tolerating diet challenge PHYSICAL EXAM: CONSTITUTIONAL: VITAL SIGNS: see record. HEENT: Normocephalic, atraumatic. PERRL, EOMI, conjunctivae pink, no scleral icterus. Ears and nose externally normal. Pharynx normal. NECK: No JVD. No carotid bruit, no thyromegaly, no adenopathy. CHEST: Clear to auscultation bilaterally. HEART: S1 and S2 normal. Edema ABDOMEN: Soft, nontender. Normal bowel sounds. MUSCULOSKELETAL: No gross joint deformity or swelling. NEURO: Cranial nerves intact. Grossly intact. No asymmetric findings. SKIN: No rashes, petechiae, concerning changes PSYCHIATRIC: Mood euthymic. DISPOSITION: Home with Time spent on discharge 37 minutes. Time Spent with Patient Time attestation: Total time spent providing and/or coordinating discharge services: Exam Const: Vital Signs, click to edit/add: Vital Signs - 24 hr 05/25/23 15:00 05/25/23 15:00 05/25/23 15:16 Temperature 97.8 F Pulse Rate 64 Pulse Rate [Pulse Oximeter] 69 69 Respiratory Rate 18 18 Blood Pressure [Le ft Arm] 140/89 H Pulse Oximetry 96 Oxygen Delivery Me thod Room Air 05/25/23 19:22 05/25/23 19:49 05/25/23 22:47 Temperature 98.7 F Pulse Rate 82 72 Pulse Rate [Pulse Oximeter] 85 Respiratory Rate 16 Blood Pressure [Le ft Arm] 142/85 H Pulse Oximetry 96 Oxygen Delivery Me thod Room Air 05/25/23 22:58 05/26/23 02:51 05/26/23 07:00 Temperature 98.6 F 97.9 F Pulse Rate 73 Pulse Rate [Pulse Oximeter] 67 80 Respiratory Rate 16 16 Blood Pressure [Le ft Arm] 151/90 H 139/88 Pulse Oximetry 96 96 Oxygen Delivery Me thod Room Air Room Air 05/26/23 08:02 Temperature 97.8 F Pulse Rate Pulse Rate [Pulse Oximeter] 77 Respiratory Rate 18 Blood Pressure [Le ft Arm] 145/89 H Pulse Oximetry 96 Oxygen Delivery Me thod Room Air DS: Data Data Completed and Pending Labs on day of discharge: Labs from last 24 hours 05/26/23 06:15 WBC 8.44 RBC 4.99 Hgb 15.9 Hct 47.0 MCV 94 MCH 32 MCHC 34 Plt Count 211 Sodium 140 Potassium 4.0 Chloride 106 Carbon Dioxide 25 Anion Gap 9 BUN 16 Creatinine 1.0 Estimated Creat Clear 62.70 Estimated GFR 79 Glucose 93 Calcium 9.0 Discharge Plan Discharge Disposition: Home, Self-Care Date of Admission: 05/25/23 15:06 Attending Provider on Discharge: Gabrielle Zuniga Primary Care Provider: FRED FAY Condition: Stable Anticipated Discharge Date/Time: 05/26/23 10:40 Discharge Medications: New diazepam 5 mg Tablet 2.5 - 5 mg PO TID PRN (Reason: Vertigo) Qty: 20 0RF ondansetron 4 mg tablet,disintegrating 4 mg PO Q8H Qty: 15 0RF Continued albuterol sulfate [Ventolin HFA] 90 mcg/actuation HFA aerosol inhaler 2 inh inhalation Q4H PRN fluticasone propionate [24 Hour Allergy Relief] 50 mcg/actuation spray,suspension 1 spray intranasal DAILY PRN Rx Instructions: administer into each nostril lisinopril 20 mg tablet 20 mg PO DAILY mometasone 0.1 % ointment 1 applic topical DAILY Hold Instructions: Doctor's Order sildenafil [Viagra] 100 mg tablet 100 mg PO DAILY PRN Rx Instructions: administer 30 minutes to 4 hours before activity acetaminophen [Acetaminophen Extra Strength] 500 mg tablet 1,000 mg PO Q6H PRN Discharge Orders: Discharge Order (Routine); Ordered 05/26/23 Ordered By: Gabrielle Zuniga Additional Instructions: Vertigo (diazepam) is for vertigo only. take 1/2 tab, 2.5mg every 8-10 hours as needed Zofran (ondansetron) is for nausea only. Take one tab every six hours for nausea. Follow the directions given to you regarding the Holter [employer]. I've asked for your PCP and [facility] to see you. If nothing changes, and you continue to feel well, going to [place] should be just fine. Activity Level: Activity as Tolerated Discharge Diet: Regular Follow Up Appointments: [facility] [Provider Group] - 06/02/23 (first available appointment at the [facility] clinic in [place] for cardiology) FRED FAY DO [Primary Care Provider] - 06/02/23 (f/u Holter monitor and vertigo hospital admission) [facility] Inst[facility]
[2023-05-26 12:30] VITALS: BP 122/89; BP 134/75; BP 138/80; PULSE 86; PULSE 88; PULSE 92; RESP 18; TEMP 36.8; O2SAT 95
--- NOTE | 2023-05-26 14:53 | PC.NURSE ---
Assumed care of this patient from Chari Prado RN at 0936 am. Please see meds provided on by Dr. Zuniga. Holter Monitor applied and teaching done per diagnostic imaging staff members. IV discontinued. Orthostatic bps completed and pt remained asymptomatic with position changes. Pt and verbalized understanding of d/c diagnosis, new RX, home meds, f/up appt and sx to report urgently to physician. Initiate PT if vertigo persists, pt is aware of this plan for care. Discharged via w/c with all personal belongings @ [id number] to own home with as transportation.
== END 2023-05-26 13:07 | disposition home or self-care (01) | DRG 149 ==
LOC: ED 13:28 → MEDSURG 13:49
PROVIDERS: Admitting Provider Physician Assistant; Emergency Provider Emergency Medicine; PCP Student in an Organized Health Care Education/Training Program; Visit Provider Internal Medicine
DX: H81.399 Other peripheral vertigo, unspecified ear (principal); I10 Essential (primary) hypertension; H55.03 Visual deprivation nystagmus; R11.0 Nausea; I49.8 Other specified cardiac arrhythmias
CPT/HCPCS: 36415; 70544; 70549; 70553; 80048; 85025; 85027; 93225; 93226; 95992; 97110; 97112; 97161; 97165; 99284; 99285; G0378; A9270; A9575; J0780; J1650; J2060; J2550; J7120